=== PATIENT | female | born 1960 | race Caucasian/White ===

== ENCOUNTER 2018-07-24 01:06 | Observation (INO) | payer BC ==
[2018-07-24 02:23] LABS: Absolute Lymphocytes (CBC) 3.2 K/uL (0.7-4.9); Absolute Neutrophil 10.2 K/uL (1.8-8.0); Basophils % 0.9 % (0-1.3); Eosinophils % 1.2 % (0-4.4); Lymphocytes % 21.6 % (15.3-44.8); MPV 9.3 fL (7.6-11.3); Monocytes % 6.6 % (3.3-12.3); RBC Red Blood Cell Count 5.32 M/uL (3.86-4.86)
[2018-07-24 02:26] LABS: Protime INR 1.23
[2018-07-24] MEDS ORDERED: ONDANSETRON 4 MG/2 ML VIAL ONE (02:32)
[2018-07-24] MEDS ORDERED: NA CHLORIDE 0.9% 1,000 ML ONE (02:32)
[2018-07-24] MEDS ORDERED: LEVALBUTEROL 1.25 MG/3 ML NEB ONE ×2 (02:32→03:06)
[2018-07-24] MEDS ORDERED: NA CHLORIDE 0.9% 500 ML ONE (02:32)
[2018-07-24] MEDS ORDERED: FAMOTIDINE 20 MG/2 ML VIAL IV ONE (02:32)
[2018-07-24] MEDS ORDERED: IPRATROPIUM BROM 0.5MG/2.5ML ONE (02:32)
[2018-07-24 02:56] LABS: ALT/SGPT 67 U/L (12-78); AST/SGOT 77 U/L (15-37); Alkaline Phosphatase 86 U/L (45-117); BUN Blood Urea Nitrogen 23 mg/dL (7-18); Bicarbonate 29 mmol/L (21-32); Bilirubin Direct 0.3 mg/dL (0-0.2); Bilirubin Total 1.1 mg/dL (0.2-1.0); Glucose Level 272 mg/dL (74-106); Lipase 118 U/L (73-393); NT PRO-BNP 69 pg/mL (<125); Potassium 3.5 mmol/L (3.5-5.1); Protein, Total 8.7 g/dL (6.4-8.2); Sodium Level 136 mmol/L (136-145); Troponin (Emerg Dept Use Only) < 0.02 ng/mL (0.0-0.045)
[2018-07-24 02:58] LABS: Magnesium 0.9 mg/dL (1.8-2.4)
[2018-07-24] MEDS ORDERED: METHYLPREDNISOLONE 125 MG INJ ONE (03:05)
[2018-07-24] MEDS ORDERED: NA CHLORIDE 0.9% 250 ML ONE (03:06)
[2018-07-24] MEDS ORDERED: AZITHROMYCIN 500 MG INJ IVPB ONE (03:06)
[2018-07-24] MEDS ORDERED: CEFTRIAXONE/SWI 1gm 1 GM/10 ML SYR ONE (03:06)
[2018-07-24] MEDS ORDERED: ASPIRIN 81 MG CHEWABLE TABLET ONE (03:06)
--- NOTE | 2018-07-24 03:07 | ER ---
Nurse's Notes [facility] Name: Miladys Ng Age: 58 yrs Sex: Female : 1960 Arrival Date: 07/24/2018 Time: 01:07 Bed 13 Private MD: VILMA OLIVARES Diagnosis: Dyspnea;Pneumonia due to other specified bacteria;Type 2 diabetes mellitus;Hypomagnesemia;Elevated white blood cell count;Hypercalcemia;Chest pain, unspecified;Solitary pulmonary nodule Presentation: 07/24 01:21 Presenting complaint: Patient states: that since last night she has been having fc coughing, sinus issues, scratchy throat and has vomited. Transition of care: patient was not received from another setting of care. Onset of symptoms was July 23, 2018. Risk Assessment: Do you want to hurt yourself or someone else? Patient reports no desire to harm self or others. Initial Sepsis Screen: Does the patient meet any 2 criteria? HR > 90 bpm. Yes Does the patient have a suspected source of infection? No. Patient's initial sepsis screen is negative. Care prior to arrival: None. 01:21 Method Of Arrival: Ambulatory 01:21 Acuity: SULTANA 3 fc Historical: - Allergies: : No Known Allergies; fc - Home Meds: :31 spironolactone 50 mg Oral tab 3 tabs once daily [Active]; amiloride 5 mg oral tab 6 fc tabs once daily [Active]; potassium chloride 10 mEq Oral cpER 4 caps 2 times per day [Active]; magnesium oxide 400 mg Oral tab 2 tab twice a day [Active]; pantoprazole 40 mg oral TbEC 1 tab nightly [Active]; levothyroxine 88 mcg tab 1 tab once daily [Active]; Zantac 150 mg Oral tab 1 tab once daily [Active]; - PMHx: 01:31 low potassium; low magnesium; GERD; fc - PSHx: 01:31 D \T\ C; fc - Immunization history:: Last tetanus immunization: up to date. - Social history:: Smoking status: Patient/guardian denies using tobacco, Patient/guardian denies using alcohol, street drugs. - Ebola Screening: : Patient negative for fever greater than or equal to 101.5 degrees Fahrenheit, and additional compatible Ebola Virus Disease symptoms Patient denies exposure to infectious person Patient denies travel to an Ebola-affected area in the 21 days before illness onset. - Family history:: not pertinent. Screenin:24 Abuse screen: Denies threats or abuse. Nutritional screening: No deficits noted. fc Tuberculosis screening: No symptoms or risk factors identified. Fall Risk None identified. Assessment: 01:30 General: Appears in no apparent distress. uncomfortable, Behavior is calm, cooperative, jd3 appropriate for age. Pain: Denies pain. Neuro: Level of Consciousness is awake, alert, obeys commands, Oriented to person, place, time, situation, Appropriate for age. Cardiovascular: Heart tones present Capillary refill < 3 seconds Patient's skin is warm and dry. Respiratory: Reports cough that is non-productive, Airway is patent Respiratory effort is even, unlabored, Respiratory pattern is regular, symmetrical, Breath sounds are clear bilaterally. GI: Abdomen is round Bowel sounds present X 4 quads. Abd is soft and non tender X 4 quads. Reports nausea. : No signs and/or symptoms were reported regarding the genitourinary system. EENT: No signs and/or symptoms were reported regarding the EENT system. Derm: Skin is intact, Skin is dry, Skin is normal, Skin temperature is warm. Musculoskeletal: Circulation, motion, and sensation intact. Range of motion: intact in all extremities. 02:15 Reassessment: Patient appears in no apparent distress at this time. Patient and/or jd3 family updated on plan of care and expected duration. Pain level reassessed. Patient is alert, oriented x 3, equal unlabored respirations, skin warm/dry/pink. 03:15 Reassessment: Patient appears in no apparent distress at this time. Patient and/or jd3 family updated on plan of care and expected duration. Pain level reassessed. Patient is alert, oriented x 3, equal unlabored respirations, skin warm/dry/pink. 04:12 Reassessment: Patient appears in no apparent distress at this time. Patient and/or jd3 family updated on plan of care and expected duration. Pain level reassessed. Patient is alert, oriented x 3, equal unlabored respirations, skin warm/dry/pink. Vital Signs: 01:21 BP 125 / 86; Pulse 125; Resp 18; Temp 98.2(O); Pulse Ox 93% on R/A; Weight 64.86 kg fc (R); Height 5 ft. 0 in. (152.40 cm) (R); Pain 8/10; 04:12 BP 111 / 59; Pulse 125; Resp 19 S; Pulse Ox 95% on R/A; jd3 01:21 Body Mass Index 27.93 (64.86 kg, 152.40 cm) ED Course: 01:07 Patient arrived in ED. am2 01:07 VILMA OLIVARES is Private Physician. am2 01:21 Arm band placed on Patient placed in an exam room, on a stretcher. fc 01:23 Triage completed. fc 01:23 Sanjiv Fairbanks RN is Primary Nurse. jd3 01:24 Patient has correct armband on for positive identification. Bed in low position. Call light in reach. 01:24 No provider procedures requiring assistance completed. fc 01:27 Valeriano Cisneros MD is Attending Physician. meghan 02:04 Inserted saline lock: 22 gauge in right antecubital area, using aseptic technique. mw2 Blood collected. 02:23 Patient moved to radiology via wheelchair. kw 02:24 X-ray completed. Patient tolerated procedure well. kw 02:24 Patient moved back from radiology. kw 02:25 Abdomen Acute Series XRAY In Process Unspecified. EDMS 02:56 Radiology exam delayed due to lab results not completed at this time. (BUN/Creatinine) kw1 test not completed at this time. 02:57 Notified ED physician of a critical lab result(s). mag of 0.9. fc 03:02 Gilbert Oliva MD is Hospitalizing Provider. meghan 03:30 CT Chest For PE Angio In Process Unspecified. EDMS Administered Medications: 03:45 Drug: NS 0.9% 1000 ml Route: IV; Rate: 125 ml/hr; Site: right antecubital; jd3 03:45 Drug: NS 0.9% 500 ml Route: IV; Rate: bolus; Site: right antecubital; jd3 03:45 Drug: Zofran 4 mg Route: IVP; Site: right antecubital; jd3 03:46 Drug: Pepcid 20 mg Route: IVP; Site: right antecubital; jd3 03:46 Drug: Xopenex 2.5 mg Route: Inhalation; jd3 03:46 Drug: AtroVENT Aerosol 0.5 mg Route: Inhalation; jd3 03:46 Drug: Rocephin 1 grams Route: IV; Rate: per protocol; Site: right antecubital; jd3 03:47 Drug: Zithromax 500 mg Route: IVPB; Infused Over: 1 hrs; Site: right antecubital; jd3 03:47 Drug: SOLU-Medrol 125 mg Route: IVP; Site: right antecubital; jd3 03:47 Drug: Xopenex 1.25 mg Route: Inhalation; jd3 03:47 Drug: Aspirin 162 mg Route: PO; jd3 03:48 Drug: Magnesium Sulfate 2 grams Route: IVPB; Infused Over: 2 hrs; Site: right jd3 antecubital; 03:48 Drug: Lovenox 60 mg Route: Sub-Q; Site: abdomen; jd3 Outcome: 03:07 Decision to Hospitalize by Provider. meghan 04:53 Patient left the ED. jd3 Signatures: Dispatcher [employer] EDValeriano Haider MD MD cha Chretien, Felicia RN Adriana Guerrero Amanda am2 Davies, Jonathon, RN RN jd3 Wilhelm, Kimberly kw1 Thor España mw2 Corrections: (The following items were deleted from the chart) 04:13 04:12 BP 111 / 59; Pulse 125bpm; Resp 17bpm; Spontaneous; Pulse Ox 95% RA; jd3 jd3
--- NOTE | 2018-07-24 03:08 | EDPHYS ---
Physician Documentation [facility] Name: Miladys Ng Age: 58 yrs Sex: Female : 1960 Arrival Date: 07/24/2018 Time: 01:07 Bed 13 Private MD: VILMA OLIVARES ED Physician Valeriano Cisneros HPI: 07/24 01:50 This 58 yrs old Female presents to ER via Ambulatory with complaints of Cough.meghan 01:50 The patient or guardian reports cough, difficulty breathing. meghan 01:51 The patient or guardian reports chest pain that is located primarily in the substernal meghan area, anterior chest wall. Onset: 6 month(s) ago. The patient presents to the emergency department with nausea, vomiting, that is continuous. Onset: The symptoms/episode began/occurred 1 day(s) ago. Possible causes: unknown. The symptoms are aggravated by nothing. The symptoms are alleviated by nothing. The pain does not radiate. Severity of symptoms: At their worst the symptoms were mild, moderate, in the emergency department the symptoms are unchanged. Historical: - Allergies: :31 No Known Allergies; fc - Home Meds: :31 spironolactone 50 mg Oral tab 3 tabs once daily [Active]; amiloride 5 mg oral tab 6 fc tabs once daily [Active]; potassium chloride 10 mEq Oral cpER 4 caps 2 times per day [Active]; magnesium oxide 400 mg Oral tab 2 tab twice a day [Active]; pantoprazole 40 mg oral TbEC 1 tab nightly [Active]; levothyroxine 88 mcg tab 1 tab once daily [Active]; Zantac 150 mg Oral tab 1 tab once daily [Active]; - PMHx: :31 low potassium; low magnesium; GERD; fc - PSHx: 01:31 D \T\ C; fc - Immunization history:: Last tetanus immunization: up to date. - Social history:: Smoking status: Patient/guardian denies using tobacco, Patient/guardian denies using alcohol, street drugs. - Ebola Screening: : Patient negative for fever greater than or equal to 101.5 degrees Fahrenheit, and additional compatible Ebola Virus Disease symptoms Patient denies exposure to infectious person Patient denies travel to an Ebola-affected area in the 21 days before illness onset. - Family history:: not pertinent. ROS: 01:51 Constitutional: Negative for fever, chills, and weight loss, Eyes: Negative for injury, meghan pain, redness, and discharge, ENT: Negative for injury, pain, and discharge, Neck: Negative for injury, pain, and swelling, Respiratory: Negative for shortness of breath, cough, wheezing, and pleuritic chest pain, Back: Negative for injury and pain, : Negative for injury, bleeding, discharge, and swelling, MS/Extremity: Negative for injury and deformity, Skin: Negative for injury, rash, and discoloration, Neuro: Negative for headache, weakness, numbness, tingling, and seizure, Psych: Negative for depression, anxiety, suicide ideation, homicidal ideation, and hallucinations, Allergy/Immunology: Negative for hives, rash, and allergies, Endocrine: Negative for neck swelling, polydipsia, polyuria, polyphagia, and marked weight changes, Hematologic/Lymphatic: Negative for swollen nodes, abnormal bleeding, and unusual bruising. 01:51 Cardiovascular: Positive for chest pain. 01:51 Respiratory: Positive for cough, with no reported sputum. 01:51 Abdomen/GI: Positive for abdominal pain, nausea and vomiting. Exam: 01:51 Constitutional: This is a well developed, well nourished patient who is awake, alert, meghan and in no acute distress. Head/Face: Normocephalic, atraumatic. Eyes: Pupils equal round and reactive to light, extra-ocular motions intact. Lids and lashes normal. Conjunctiva and sclera are non-icteric and not injected. Cornea within normal limits. Periorbital areas with no swelling, redness, or edema. ENT: Nares patent. No nasal discharge, no septal abnormalities noted. Tympanic membranes are normal and external auditory canals are clear. Oropharynx with no redness, swelling, or masses, exudates, or evidence of obstruction, uvula midline. Mucous membranes moist. Neck: Trachea midline, no thyromegaly or masses palpated, and no cervical lymphadenopathy. Supple, full range of motion without nuchal rigidity, or vertebral point tenderness. No Meningismus. Chest/axilla: Normal chest wall appearance and motion. Nontender with no deformity. No lesions are appreciated. Respiratory: Lungs have equal breath sounds bilaterally, clear to auscultation and percussion. No rales, rhonchi or wheezes noted. No increased work of breathing, no retractions or nasal flaring. Abdomen/GI: Soft, non-tender, with normal bowel sounds. No distension or tympany. No guarding or rebound. No evidence of tenderness throughout. Back: No spinal tenderness. No costovertebral tenderness. Full range of motion. Skin: Warm, dry with normal turgor. Normal color with no rashes, no lesions, and no evidence of cellulitis. MS/ Extremity: Pulses equal, no cyanosis. Neurovascular intact. Full, normal range of motion. Neuro: Awake and alert, GCS 15, oriented to person, place, time, and situation. Cranial nerves II-XII grossly intact. Motor strength 5/5 in all extremities. Sensory grossly intact. Cerebellar exam normal. Normal gait. Psych: Awake, alert, with orientation to person, place and time. Behavior, mood, and affect are within normal limits. 01:51 Cardiovascular: Rate: tachycardic, Rhythm: regular, Pulses: Pulses are 4+ in bilateral radial, brachial, femoral, popliteal, posterior tibial and and dorsalis pedis arteries.. Heart sounds: normal, Edema: is not appreciated, JVD: is not appreciated. 02:31 Musculoskeletal/extremity: DVT Exam: No signs of deep vein thrombosis. no pain, no meghan swelling, no tenderness, negative Homans' sign noted on exam, no appreciated bluish discoloration, no erythema, no increased warmth. Vital Signs: 01:21 BP 125 / 86; Pulse 125; Resp 18; Temp 98.2(O); Pulse Ox 93% on R/A; Weight 64.86 kg fc (R); Height 5 ft. 0 in. (152.40 cm) (R); Pain 8/10; 04:12 BP 111 / 59; Pulse 125; Resp 19 S; Pulse Ox 95% on R/A; jd3 01:21 Body Mass Index 27.93 (64.86 kg, 152.40 cm) MDM: 01:27 Patient medically screened. [facility] 01:51 Data reviewed: vital signs, nurses notes, lab test result(s), EKG, radiologic studies, [facility] plain films. 07/24 01:49 Order name: Basic Metabolic Panel [facility] 07/24 01:49 Order name: CBC with Diff; Complete Time: 02:28 [facility] 07/24 01:49 Order name: LFT's [facility] 07/24 01:49 Order name: Magnesium [facility] 07/24 01:49 Order name: NT PRO-BNP [facility] 07/24 01:49 Order name: PT-INR; Complete Time: 02:28 [facility] 07/24 01:49 Order name: Troponin (emerg Dept Use Only) meghan 07/24 01:49 Order name: TSH [facility] 07/24 01:49 Order name: Lipase [facility] 07/24 01:49 Order name: Urine Culture [facility] 07/24 02:18 Order name: D-Dimer; Complete Time: 02:28 EDTX 07/24 02:31 Order name: Blood Culture Adult (2) [facility] 07/24 02:31 Order name: Blood Culture EDTX 07/24 02:57 Order name: Urine Dipstick--Ancillary (enter results) ar 07/24 02:59 Order name: Phosphorus EDTX 07/24 03:25 Order name: CBC with Automated Diff EDMS 07/24 03:25 Order name: CBC with Automated Diff EDMS 07/24 03:25 Order name: Comprehensive Metabolic Panel EDTX 07/24 03:25 Order name: Comprehensive Metabolic Panel EDMS 07/24 03:25 Order name: Lactate EDMS 07/24 03:25 Order name: Lactate EDMS 07/24 03:25 Order name: Lipid Profile EDMS 07/24 03:25 Order name: Lipid Profile EDMS 07/24 03:25 Order name: Magnesium EDMS 07/24 03:25 Order name: Magnesium EDMS 07/24 03:25 Order name: Phosphorus EDMS 07/24 03:25 Order name: Phosphorus EDMS 07/24 03:25 Order name: NT PRO-BNP [facility] 07/24 01:49 Order name: EKG; Complete Time: 01:50 07/24 01:49 Order name: Cardiac monitoring; Complete Time: 02:49 07/24 01:49 Order name: EKG - Nurse/Tech; Complete Time: 02:50 07/24 01:49 Order name: IV Saline Lock; Complete Time: 02:22 meghan 07/24 01:49 Order name: Labs collected and sent; Complete Time: 02:22 07/24 01:49 Order name: O2 Per Protocol; Complete Time: 02:23 meghan 07/24 01:49 Order name: O2 Sat Monitoring; Complete Time: 02:23 [facility] 07/24 01:49 Order name: Abdomen Acute Series XRAY [facility] 07/24 01:49 Order name: Urine Dipstick-Ancillary (obtain specimen); Complete Time: 04:12 [facility] 07/24 02:27 Order name: CT Chest For PE Angio [facility] 07/24 03:25 Order name: NPO EDTX 07/24 03:25 Order name: NT PRO-BNP [facility] 07/24 03:27 Order name: Calcium Level EDTX 07/24 03:27 Order name: Ionized Calcium [facility] 07/24 03:27 Order name: CBC with Automated Diff EDTX 07/24 03:27 Order name: Creatine Phosphokinase [facility] 07/24 03:27 Order name: Magnesium [facility]TX 07/24 03:27 Order name: Procalcitonin [facility] 07/24 03:27 Order name: Phosphorus EDMS Administered Medications: 03:45 Drug: NS 0.9% 1000 ml Route: IV; Rate: 125 ml/hr; Site: right antecubital; jd3 03:45 Drug: NS 0.9% 500 ml Route: IV; Rate: bolus; Site: right antecubital; jd3 03:45 Drug: Zofran 4 mg Route: IVP; Site: right antecubital; jd3 03:46 Drug: Pepcid 20 mg Route: IVP; Site: right antecubital; jd3 03:46 Drug: Xopenex 2.5 mg Route: Inhalation; jd3 03:46 Drug: AtroVENT Aerosol 0.5 mg Route: Inhalation; jd3 03:46 Drug: Rocephin 1 grams Route: IV; Rate: per protocol; Site: right antecubital; jd3 03:47 Drug: Zithromax 500 mg Route: IVPB; Infused Over: 1 hrs; Site: right antecubital; jd3 03:47 Drug: SOLU-Medrol 125 mg Route: IVP; Site: right antecubital; jd3 03:47 Drug: Xopenex 1.25 mg Route: Inhalation; jd3 03:47 Drug: Aspirin 162 mg Route: PO; jd3 03:48 Drug: Magnesium Sulfate 2 grams Route: IVPB; Infused Over: 2 hrs; Site: right jd3 antecubital; 03:48 Drug: Lovenox 60 mg Route: Sub-Q; Site: abdomen; jd3 Disposition: 07/24/18 03:07 Hospitalization ordered by Gilbert Oliva for Inpatient Admission. Preliminary diagnosis are Dyspnea, Pneumonia due to other specified bacteria, Type 2 diabetes mellitus, Hypomagnesemia, Elevated white blood cell count, Hypercalcemia, Chest pain, unspecified, Solitary pulmonary nodule. - Bed requested for Telemetry/MedSurg (Inpatient). - Status is Inpatient Admission. jd3 - Condition is Fair. - Problem is new. - Symptoms have improved. UTI on Admission? No Signatures: Dispatcher [employer] EDTX Karmen Del Cid RN RN mw Anderson, Corey, MD MD cha Chretien, Felicia, RN RN Sanjiv Fairbanks RN RN jd3 Corrections: (The following items were deleted from the chart) 02:17 01:54 D-DIMER+COAG.LAB.BRZ ordered. EDTX EDMS 02:58 02:34 PHOSPHORUS+C.LAB.BRZ ordered. EDTX EDTX 03:12 03:07 Hospitalization Ordered by Gilbert Oliva MD for Inpatient Admission. Preliminary diagnosis is Dyspnea; Pneumonia due to other specified bacteria; Type 2 diabetes mellitus; Hypomagnesemia; Elevated white blood cell count; Hypercalcemia; Chest pain, unspecified. Bed requested for Telemetry/MedSurg (Inpatient). Status is Inpatient Admission. Condition is Fair. Problem is new. Symptoms have improved. UTI on Admission? No. meghan 03:14 03:12 07/24/2018 03:07 Hospitalization Ordered by Gilbert Oliva MD for Inpatient Admission. Preliminary diagnosis is Dyspnea; Pneumonia due to other specified bacteria; Type 2 diabetes mellitus; Hypomagnesemia; Elevated white blood cell count; Hypercalcemia; Chest pain, unspecified. Bed requested for Telemetry/MedSurg (Inpatient). Status is Inpatient Admission. Condition is Fair. Problem is new. Symptoms have improved. UTI on Admission? No. 04:08 03:14 07/24/2018 03:07 Hospitalization Ordered by Gilbert Oliva MD for Inpatient [facility] Admission. Preliminary diagnosis is Dyspnea; Pneumonia due to other specified bacteria; Type 2 diabetes mellitus; Hypomagnesemia; Elevated white blood cell count; Hypercalcemia; Chest pain, unspecified. Bed requested for Telemetry/MedSurg (Inpatient). Status is Inpatient Admission. Condition is Fair. Problem is new. Symptoms have improved. UTI on Admission? No. mw 04:53 04:08 07/24/2018 03:07 Hospitalization Ordered by Gilbert Oliva MD for Inpatient jd3 Admission. Preliminary diagnosis is Dyspnea; Pneumonia due to other specified bacteria; Type 2 diabetes mellitus; Hypomagnesemia; Elevated white blood cell count; Hypercalcemia; Chest pain, unspecified; Solitary pulmonary nodule. Bed requested for Telemetry/MedSurg (Inpatient). Status is Inpatient Admission. Condition is Fair. Problem is new. Symptoms have improved. UTI on Admission? No. meghan
[2018-07-24 03:17] LABS: Phosphorus 3.1 mg/dL (2.5-4.9)
[2018-07-24] MEDS ORDERED: IPRATROPIUM BROM 0.5MG/2.5ML NEB PRN (03:21)
[2018-07-24] MEDS ORDERED: ALBUTEROL 2.5 MG/3 ML NEB SOL NEB PRN (03:21)
[2018-07-24] MEDS ORDERED: ONDANSETRON 4 MG/2 ML VIAL IV PRN (03:21)
[2018-07-24] MEDS ORDERED: ACETAMINOPHEN 500 MG TAB PO PRN (03:21)
[2018-07-24] MEDS ORDERED: ENOXAPARIN 60 MG/0.6 ML SQ ONE (03:26)
[2018-07-24] MEDS ORDERED: Magnesium Sulfate 2gm IVPB 2 G/50 ML BAG IV ONE (03:26)
[2018-07-24] MEDS ORDERED: NA CHLORIDE 0.9% 1,000 ML IV SCH (04:00)
[2018-07-24 05:01] VITALS: O2SAT 95
[2018-07-24 05:10] VITALS: BMI 28.6
[2018-07-24 05:33] LABS: Urine Blood TRACE (NEG); Urine Glucose NEGATIVE (NEG); Urine Protein 2+ (NEG); Urine Specific Gravity >1.030 (1.005-1.030)
[2018-07-24 05:44] LABS: Absolute Lymphocytes (CBC) 2.8 K/uL (0.7-4.9); Absolute Monocytes 0.5 K/uL (0.1-1.3); Basophils % 0.6 % (0-1.3); Eosinophils % 0.6 % (0-4.4); Hematocrit 41.1 % (36.0-45.0); Lymphocytes % 18.3 % (15.3-44.8); MPV 9.3 fL (7.6-11.3); RBC Red Blood Cell Count 4.64 M/uL (3.86-4.86)
[2018-07-24 06:02] LABS: Magnesium 1.8 mg/dL (1.8-2.4); Phosphorus 2.6 mg/dL (2.5-4.9)
--- NOTE | 2018-07-24 07:05 | EKG ---
Test Date: 2018-07-24 Test Time: 02:46:11 Basket Person: [place] MEASUREMENT RESULTS: Intervals: Rate: 118 OK: 140 QRSD: 82 QT: 328 QTc: 459 [place]: P: 62 OK: 140 QRS: 112 T: 31 INTERPRETIVE STATEMENTS: Sinus tachycardia vertical QRS axis Abnormal ECG Compared to ECG 03/28/2013 17:55:45 Right-axis deviation no longer present Electronically Signed On 07-24-18 07:04:25 CDT by Markus Madrigal
[2018-07-24] MEDS ORDERED: MAGNESIUM SULFATE 1 gm IVPB 1 GM/100 ML BAG IV ONE (08:00)
--- NOTE | 2018-07-24 08:19 | RAD REPORT ---
EXAM DESCRIPTION: RAD - Abdomen Acute Series - 07/24/2018 2:28 am CLINICAL HISTORY: ABD PAIN COMPARISON: CHEST PA AND LAT 2 VIEW dated 03/28/2013; CHEST PA AND LAT 2 VIEW dated 04/27/2010; CHEST P A AND LAT 2 VIEW dated 12/09/2009 FINDINGS: The lungs are grossly clear. No subdiaphragmatic free air is seen. The bowel gas pattern is nonobstructive. Bilateral renal calcifications seen. Mild levoscoliosis of the lumbar spine with bridging left-sided osteophyte. IMPRESSION: Bilateral nephrolithiasis.
--- NOTE | 2018-07-24 08:37 | P.HP ---
Certification for Inpatient Patient admitted to: Inpatient With expected LOS: >2 Midnights Patient will require the following post-hospital care: None Practitioner: I am a practitioner with admitting privileges, knowledge of patient current condition, hospital course, and medical plan of care. Services: Services provided to patient in accordance with Admission requirements found in Title 42 Section 412.3 of the Code of Federal Regulations Patient History Date of Service: 07/24/18 Reason for admission: Pneumonia & electrolyte abnormalities; nephrolithiasis History of Present Illness: Patient is a 58-year-old gentleman who came into the hospital with shortness of breath and pleuritic chest pain. Patient has been having coughing congestion for the last week. Her symptoms have not really been improving so she came into the hospital for further evaluation. In the emergency room, her workup revealed that she may have an infiltrate. She also was found have bilateral nephrolithiasis. Patient also had multiple electrolyte abnormalities including hypomagnesemia and hypercalcemia. Patient was admitted to the hospital for further evaluation. Allergies No Known Allergies Allergy (Verified 07/24/18 05:12) Home Medications: Amiloride HCl 6 tab PO DAILY 07/24/18 Levothyroxine [Synthroid*] 1 tab PO DAILY 07/24/18 Magnesium Oxide [Mag 0X*] 2 tab PO BID 07/24/18 Pantoprazole [Protonix Tab*] 1 tab PO BEDTIME 07/24/18 Potassium Chloride 4 tab PO BID 07/24/18 Ranitidine [Zantac*] 1 tab PO DAILY 07/24/18 Spironolactone [Aldactone] 3 tab PO DAILY 07/24/18 - Past Medical/Surgical History Has patient received pneumonia vaccine in the past: No Diabetic: No -: low potassium -: leg cramps -: low magnesium -: chronic pain legs thigs -: GERD Past Surgical History: Patient denies surgical history - Family History Mother Medical History: Diabetes Brother Medical History: Diabetes - Social History Smoking Status: Never smoker Alcohol use: No CD- Drugs: No Caffeine use: Yes Place of Residence: Home Review of Systems 10-point ROS is otherwise unremarkable Physical Examination - Vital Signs Temperature: 97.0 F Blood Pressure: 93/53 Pulse: 91 Respirations: 18 Pulse Ox (%): 96 - Physical Exam General: Alert, In no apparent distress, Oriented x3 HEENT: Atraumatic, PERRLA, Mucous membr. moist/pink, EOMI, Sclerae nonicteric Neck: Supple, 2+ carotid pulse no bruit, No LAD, Without JVD or thyroid abnormality Respiratory: Diminished, Expiratory wheezes, Rhonchi/gurgles Cardiovascular: Regular rate/rhythm, Normal S1 S2, Systolic murmur Gastrointestinal: Normal bowel sounds, Soft and benign, Non-distended, Tenderness Musculoskeletal: No clubbing, No swelling, No tenderness Integumentary: No rashes Neurological: Normal gait, Normal speech, Normal strength at 5/5 x4 extr, Normal tone, Normal affect Lymphatics: No axilla or inguinal lymphadenopathy - Studies Laboratory Data (last 24 hrs) 07/24/18 02:34: Phosphorus Cancelled 07/24/18 02:05: PT 14.4 H, INR 1.23 07/24/18 02:05: WBC 14.6 H, Hgb 16.4 H, Hct 47.0 H, Plt Count 352 07/24/18 02:05: Sodium 136, Potassium 3.5, BUN 23 H, Creatinine 1.10, Glucose 272 H, Phosphorus 3.1, Magnesium 0.9 L*, Total Bilirubin 1.1 H, AST 77 H, ALT 67 , Alkaline Phosphatase 86, Lipase 118 Assessment & Plan - Problems (Diagnosis) (1) Bilateral nephrolithiasis Current Visit: Yes Status: Acute (2) Pneumonia Current Visit: Yes Status: Acute (3) URI (upper respiratory infection) Current Visit: Yes Status: Acute (4) Hypomagnesemia Current Visit: Yes Status: Acute (5) Hypercalcemia Current Visit: Yes Status: Acute - Plan 1. Continue with IV antibiotics 2. Awaiting sputum and blood culture 3. Repeat chest x-ray 4. Will proceed with CT scan of the chest 5. CBC, CMP in am 6. Continue with nebs as needed 7. O2 per protocol 8. Continue with gentle hydration 9. GI and DVT prophylaxis Discharge Plan: Home Plan to discharge in: 48 Hours - Advance Directives Does patient have a Living Will: No Does patient have a Durable POA for Healthcare: No - Code Status/Comfort Care Code Status Assessed: Yes Code Status: Full Code Critical Care: No Time Spent Managing PTS Care (In Minutes): 45
[2018-07-24] MEDS ORDERED: CEFTRIAXONE 1 GM/NS 50 ML 1 GM/50 ML BAG IV SCH (09:00)
[2018-07-24] MEDS ORDERED: ENOXAPARIN 40 MG/0.4 ML SQ SCH (09:00)
[2018-07-24] MEDS ORDERED: KCL 20 MEQ/100 mL IVPB 20 MEQ/100 ML BAG IV SCH (09:00)
[2018-07-24] MEDS ORDERED: POTASSIUM CL SA 10 MEQ TAB PO ONE (10:07)
--- NOTE | 2018-07-24 10:12 | RAD REPORT ---
EXAM DESCRIPTION: CT CHEST ANGIOGRAPHY WITH IV CONTRAST CLINICAL HISTORY: CHEST PAIN COMPARISON: None Available TECHNIQUE: Multiple helical axial tomographic images were obtained of the chest following administra tion of intravenous contrast (95 mL Isovue-370) per angiographic protocol. Coronal, sagittal, and obl ique reformatted images were obtained. This exam was performed according to our departmental dose-optimization program, which includes autom ated exposure control, adjustment of the mA and/or kV according to patient size and/or use of iterati ve reconstruction technique. FINDINGS: Thyroid gland: unremarkable. Axilla: unremarkable. Pulmonary arteries: Pulmonary arteries appear patent. No evidence of pulmonary embolism. Aorta: No evidence of aortic dissection or aneurysm. Mediastinum: A small hiatal hernia is present. Few nonspecific mildly prominent lymph nodes near the hiatal hernia demonstrated. Otherwise, no significant adenopathy. Heart: Heart is normal in size. Lungs/airways: No consolidation. Airways are patent. There is a 3 mm subpleural nodule in the right l ower lobe (series 401, image 60). Pleural spaces: No significant pleural effusion. No pneumothorax. Osseous: Unremarkable. Soft tissues: Nonspecific coarse calcification in the left breast soft tissues noted. Several small c alcifications in the right breast noted. Visualized abdomen: There is a 6 mm calcification in the upper pole of the left kidney. There is low- attenuation in the liver suggestive of fatty changes. IMPRESSION: 1. No acute intrathoracic abnormality. 2. Right lower lobe 3 mm nodule. For a high-risk patient, optional follow-up chest CT in one year is recommended per Fleischner Society criteria. For a low risk patient, no further follow-up is needed. 3. Few small calcifications in the right breast are nonspecific. Consider correlation with routine sc reening mammography. Electronically signed by: Jayce Chaves MD 07/24/2018 3:56 AM CDT Due to temporary technical issues with the PACS/Fluency reporting system, reports are being signed by the in house radiologist as a courtesy to ensure prompt reporting. The interpreting radiologist is f ully responsible for the content of the report.
[2018-07-24 12:45] VITALS: TEMP 98
[2018-07-24 16:22] VITALS: BP 110/60
[2018-07-24] MEDS ORDERED: CEFTRIAXONE/SWI 1gm 1 GM/10 ML SYR IV SCH (17:00)
--- NOTE | 2018-07-24 17:26 | P.SSS ---
Patient History Date of Service: 07/24/18 Reason for admission: Pneumonia & electrolyte abnormalities; nephrolithiasis History of Present Illness: Patient is a 58-year-old female who came into the hospital with shortness of breath and pleuritic chest pain. Patient has been having coughing congestion for the last week. Her symptoms have not really been improving so she came into the hospital for further evaluation. In the emergency room, her workup revealed that she may have an infiltrate. She also was found have bilateral nephrolithiasis. Patient also had multiple electrolyte abnormalities including hypomagnesemia and hypercalcemia. Patient was admitted to the hospital for further evaluation. Allergies No Known Allergies Allergy (Verified 07/24/18 05:12) Home medications list reviewed: Yes Home Medications: Amiloride HCl 6 tab PO DAILY 07/24/18 Levothyroxine [Synthroid*] 1 tab PO DAILY 07/24/18 Magnesium Oxide [Mag 0X*] 2 tab PO BID 07/24/18 Pantoprazole [Protonix Tab*] 1 tab PO BEDTIME 07/24/18 Potassium Chloride 4 tab PO BID 07/24/18 Ranitidine [Zantac*] 1 tab PO DAILY 07/24/18 Spironolactone [Aldactone] 3 tab PO DAILY 07/24/18 - Past Medical/Surgical History Has patient received pneumonia vaccine in the past: No Diabetic: No -: low potassium -: leg cramps -: low magnesium -: chronic pain legs thigs -: GERD - Family History Mother -: Diabetes Brother -: Diabetes - Social History Smoking Status: Never smoker Alcohol use: No CD- Drugs: No Caffeine use: Yes Place of Residence: Home Review of Systems 10-point ROS is otherwise unremarkable Physical Examination - Vital Signs Temperature: 98.0 F Blood Pressure: 110/60 Pulse: 94 Respirations: 18 Pulse Ox (%): 97 - Physical Exam General: Alert, In no apparent distress, Oriented x3 HEENT: Atraumatic, PERRLA, Mucous membr. moist/pink, EOMI, Sclerae nonicteric Neck: Supple, 2+ carotid pulse no bruit, No LAD, Without JVD or thyroid abnormality Respiratory: Clear to auscultation bilaterally, Normal air movement Cardiovascular: Regular rate/rhythm, Normal S1 S2 Gastrointestinal: Normal bowel sounds, No tenderness Musculoskeletal: No tenderness Integumentary: No rashes Neurological: Normal gait, Normal speech, Normal strength at 5/5 x4 extr, Normal tone, Normal affect Lymphatics: No axilla or inguinal lymphadenopathy - Studies Laboratory Data (last 24 hrs) 07/24/18 02:34: Phosphorus Cancelled 07/24/18 02:05: PT 14.4 H, INR 1.23 07/24/18 02:05: WBC 14.6 H, Hgb 16.4 H, Hct 47.0 H, Plt Count 352 07/24/18 02:05: Sodium 136, Potassium 3.5, BUN 23 H, Creatinine 1.10, Glucose 272 H, Phosphorus 3.1, Magnesium 0.9 L*, Total Bilirubin 1.1 H, AST 77 H, ALT 67 , Alkaline Phosphatase 86, Lipase 118 Imagings Data: CT CHEST ANGIOGRAPHY WITH IV CONTRAST TECHNIQUE: Multiple helical axial tomographic images were obtained of the chest following administration of intravenous contrast (95 mL Isovue-370) per angiographic protocol. Coronal, sagittal, and oblique reformatted images were obtained. This exam was performed according to our departmental dose-optimization program , which includes automated exposure control, adjustment of the mA and/or kV according to patient size and/or use of iterative reconstruction technique. FINDINGS: Thyroid gland: unremarkable. Axilla: unremarkable. Pulmonary arteries: Pulmonary arteries appear patent. No evidence of pulmonary embolism. Aorta: No evidence of aortic dissection or aneurysm. Mediastinum: A small hiatal hernia is present. Few nonspecific mildly prominent lymph nodes near the hiatal hernia demonstrated. Otherwise, no significant adenopathy. Heart: Heart is normal in size. Lungs/airways: No consolidation. Airways are patent. There is a 3 mm subpleural nodule in the right lower lobe (series 401, image 60). Pleural spaces: No significant pleural effusion. No pneumothorax. Osseous: Unremarkable. Soft tissues: Nonspecific coarse calcification in the left breast soft tissues noted. Several small calcifications in the right breast noted. Visualized abdomen: There is a 6 mm calcification in the upper pole of the left kidney. There is low-attenuation in the liver suggestive of fatty changes. IMPRESSION: 1. No acute intrathoracic abnormality. 2. Right lower lobe 3 mm nodule. For a high-risk patient, optional follow-up chest CT in one year is recommended per Fleischner Society criteria. For a low risk patient, no further follow-up is needed. 3. Few small calcifications in the right breast are nonspecific. Consider correlation with routine screening mammography. CHEST PA AND LAT 2 VIEW FINDINGS: The lungs are grossly clear. No subdiaphragmatic free air is seen. The bowel gas pattern is nonobstructive. Bilateral renal calcifications seen. Mild levoscoliosis of the lumbar spine with bridging left-sided osteophyte. IMPRESSION: Bilateral nephrolithiasis. - Diagnosis (Problem(s)) (1) Bilateral nephrolithiasis Current Visit: Yes Status: Acute (2) Pneumonia Current Visit: Yes Status: Acute Qualifiers: Pneumonia type: due to unspecified organism Laterality: right Lung location: lower lobe of lung Qualified Code(s): J18.1 - Lobar pneumonia, unspecified organism (3) URI (upper respiratory infection) Current Visit: Yes Status: Acute Qualifiers: URI type: unspecified URI Qualified Code(s): J06.9 - Acute upper respiratory infection, unspecified (4) Hypomagnesemia Current Visit: Yes Status: Resolved (5) Hypercalcemia Current Visit: Yes Status: Resolved Treatment Summary: Patient was admitted for suspected pneumonia, bilateral nephrolithiasis and multiple underlying abnormalities. She was given IV antibiotics along with IV fluids. Her electrolytes were repleted, improved on recheck. CT scan of the chest with a 3 mm nodule in right lower lung. Patient is not a smoker, no family history of lung cancer. Patient is recommended to have followup imaging in a year. Her CBC did show leukocytosis, this is likely secondary to IV steroid. Prior to discharge, she was alert oriented x3, in no acute distress, off oxygen , satting well on room air. She is tolerating an oral diet. She was doing great and wanted to go home. She stated that she had an appointment with her primary care physician this week already scheduled. Her diagnoses/treatment plan were discussed with patient, all questions were answered. She verbalized understanding along with her at bedside. She was discharged home in a safe and stable manner. She was discharged with a prescription for azithromycin 250 mg for 7 days. - Disposition Discharge Date: 07/14/18 Disposition: ROUTINE DISCHARGE Condition: GOOD Patient Discharge Instructions: Please follow up with the primary care physician in 2-3 days. We are recommending a repeat CT scan in 1 year to evaluate the small in nodule noticed on the CT scan. New prescription: Azithromycin, an antibiotic for your upper respiratory infection/pneumonia. Please return to the emergency room for worsening symptoms. Diet: [facility] Time Spent Managing Pts Care (In Minutes): 55
[2018-07-24] MEDS ORDERED: AZITHROMYCIN IV 500 MG in NA CHLORIDE 0.9% 250 ML IVPB SCH (21:00)
[2018-07-25] MEDS ORDERED: ENOXAPARIN 40 MG/0.4 ML SQ SCH (09:00)
== END 2018-07-24 18:19 | disposition home or self-care (01) ==
LOC: ER 01:06 → INTOOBSV 03:21 → ERHOLD 03:21 → 4TH 04:50
PROVIDERS: ADMIT Hospitalist; ATTEND Family Medicine
DX: J15.8 Pneumonia due to other specified bacteria (principal); N20.0 Calculus of kidney; J06.9 Acute upper respiratory infection, unspecified; E83.42 Hypomagnesemia; E83.52 Hypercalcemia; R91.1 Solitary pulmonary nodule; E11.9 Type 2 diabetes mellitus without complications; D72.829 Elevated white blood cell count, unspecified; R06.00 Dyspnea, unspecified; G89.29 Other chronic pain; K21.9 Gastro-esophageal reflux disease without esophagitis; R25.2 Cramp and spasm; Z83.3 Family history of diabetes mellitus
CPT/HCPCS: 36415; 71275; 74022; 80048; 80076; 81003; 82310; 82330; 82550; 83690; 83735; 83880; 84100; 84145; 84443; 84484; 85025; 85379; 85610; 87040; 87086; 87088; 93005; 94760; G0378; J0456; J0696; J1650; J2405; J2930; J3475; J7030; Q9967

== ENCOUNTER 2018-10-06 21:23 | Emergency (ER) | payer BC ==
[2018-10-06 22:22] LABS: Basophils % 0.9 % (0-1.3); Hematocrit 43.8 % (36.0-45.0); Lymphocytes % 21.7 % (15.3-44.8); MPV 9.4 fL (7.6-11.3); Monocytes % 9.2 % (3.3-12.3); RBC Red Blood Cell Count 4.96 M/uL (3.86-4.86)
[2018-10-06 22:25] LABS: Protime INR 1.14
[2018-10-06] MEDS ORDERED: ACETAMINOPHEN 325 MG TABLET ONE (22:27)
[2018-10-06] MEDS ORDERED: NA CHLORIDE 0.9% 1,000 ML ONE (22:27)
[2018-10-06 22:41] LABS: BUN Blood Urea Nitrogen 15 mg/dL (7-18); Bicarbonate 33 mmol/L (21-32); Glucose Level 241 mg/dL (74-106); Lipase 132 U/L (73-393); Sodium Level 135 mmol/L (136-145); Troponin (Emerg Dept Use Only) < 0.02 ng/mL (0.0-0.045)
[2018-10-06 22:43] LABS: Potassium 2.2 mmol/L (3.5-5.1)
[2018-10-06] MEDS ORDERED: POTASSIUM 25 MEQ EFFERV TAB ONE (23:27)
[2018-10-06] MEDS ORDERED: Magnesium Sulfate 2gm IVPB 2 G/50 ML BAG IV ONE (23:27)
[2018-10-06 23:37] LABS: Urine Blood NEGATIVE (NEG); Urine Glucose 2+ (NEG); Urine Protein 2+ (NEG); Urine Specific Gravity 1.025 (1.005-1.030)
[2018-10-06 23:59] LABS: Urine Bacteria 20-50 /HPF (<20); Urine Culture Reflex Order REFLEXED; Urine RBC NONE SEEN /HPF (NONE SEEN)
--- NOTE | 2018-10-07 00:48 | EDPHYS ---
Physician Documentation [facility] Name: Miladys Ng Age: 58 yrs Sex: Female : 1960 Arrival Date: 10/06/2018 Time: 21:26 Bed 5 Private MD: VILMA OLIVARES ED Physician Arnold Louis HPI: 10/07 00:59 This 58 yrs old Female presents to ER via Ambulatory with complaints of gs Vomiting Fever. 00:59 Onset: The symptoms/episode began/occurred 2 day(s) ago. Modifying factors: there are gs no obvious modifying factors. Associated signs and symptoms: Pertinent positives: arthralgias, chills, cough, myalgias. Associated signs and symptoms: Pertinent positives: vomiting. Severity of symptoms: At their worst the symptoms were. Severity of symptoms: At their worst the symptoms were severe in the emergency department the symptoms have improved moderately. The patient has experienced similar episodes in the past, a few times. The patient has not recently seen a physician. Historical: - Allergies: 10/06 21:35 No Known Allergies; la1 - PMHx: 21:35 GERD; LOW MAGNESIUM; LOW POTASSIUM; Gitelman's syndrome; la1 - Immunization history:: Adult Immunizations up to date. - Social history:: Smoking status: Patient/guardian denies using tobacco. - Ebola Screening: : No symptoms or risks identified at this time. ROS: 10/07 01:06 All other systems are negative. gs Exam: 01:06 Head/Face: Normocephalic, atraumatic. Eyes: Pupils equal round and reactive to light, gs extra-ocular motions intact. Lids and lashes normal. Conjunctiva and sclera are non-icteric and not injected. Cornea within normal limits. Periorbital areas with no swelling, redness, or edema. ENT: Nares patent. No nasal discharge, no septal abnormalities noted. Tympanic membranes are normal and external auditory canals are clear. Oropharynx with no redness, swelling, or masses, exudates, or evidence of obstruction, uvula midline. Mucous membranes moist. Neck: Trachea midline, no thyromegaly or masses palpated, and no cervical lymphadenopathy. Supple, full range of motion without nuchal rigidity, or vertebral point tenderness. No Meningismus. Chest/axilla: Normal chest wall appearance and motion. Nontender with no deformity. No lesions are appreciated. Respiratory: Lungs have equal breath sounds bilaterally, clear to auscultation and percussion. No rales, rhonchi or wheezes noted. No increased work of breathing, no retractions or nasal flaring. Abdomen/GI: Soft, non-tender, with normal bowel sounds. No distension or tympany. No guarding or rebound. No evidence of tenderness throughout. Back: No spinal tenderness. No costovertebral tenderness. Full range of motion. Skin: Warm, dry with normal turgor. Normal color with no rashes, no lesions, and no evidence of cellulitis. MS/ Extremity: Pulses equal, no cyanosis. Neurovascular intact. Full, normal range of motion. Neuro: Awake and alert, GCS 15, oriented to person, place, time, and situation. Cranial nerves II-XII grossly intact. Motor strength 5/5 in all extremities. Sensory grossly intact. Cerebellar exam normal. Normal gait. 01:06 Constitutional: The patient appears alert, awake. 01:06 Cardiovascular: Rate: tachycardic, Rhythm: regular, Pulses: no pulse deficits are appreciated, Heart sounds: normal. 01:06 ECG was reviewed by the Attending Physician. Vital Signs: 10/06 21:35 BP 131 / 75; Pulse 114; Resp 16; Temp 98.8; Pulse Ox 98% on R/A; Weight 65.77 kg; la1 Height 5 ft. 0 in. (152.40 cm); 21:45 Temp 99.1(O); tl1 22:49 BP 109 / 62; Pulse 94; Resp 18; Pulse Ox 97% on R/A; tl1 10/07 00:00 BP 102 / 70; Pulse 85; Resp 17; Pulse Ox 98% ; rr5 01:10 BP 96 / 76; Pulse 88; Resp 19; Temp 99; Pulse Ox 99% ; rr5 10/06 21:35 Body Mass Index 28.32 (65.77 kg, 152.40 cm) la1 MDM: 10/06 21:58 Patient medically screened. gs 10/07 01:06 Differential diagnosis: viral Infection, bacterial infection, pneumonia UTI. Data gs reviewed: vital signs, nurses notes, old medical records, lab test result(s), radiologic studies. Counseling: I had a detailed discussion with the patient and/or guardian regarding: the historical points, exam findings, and any diagnostic results supporting the discharge/admit diagnosis, lab results, radiology results, the need for further work-up and treatment in the hospital. Refusal of service: The patient/guardian displays adequate decision making capability and despite a detailed discussion of alternatives, benefits, risks, and consequences refuses: Admission to the hospital for further work-up and treatment. 10/06 21:59 Order name: Basic Metabolic Panel; Complete Time: 22:45 10/06 21:59 Order name: Blood Culture Adult (2) 10/06 21:59 Order name: CBC with Diff; Complete Time: 22:45 10/06 21:59 Order name: Procalcitonin; Complete Time: 23:00 10/06 21:59 Order name: Protime (+inr); Complete Time: 22:45 10/06 21:59 Order name: Troponin (emerg Dept Use Only); Complete Time: 22:45 10/06 21:59 Order name: Urine Microscopic Only; Complete Time: 00:01 10/06 21:59 Order name: XRAY Chest Pa And Lat (2 Views) 10/06 21:59 Order name: Lipase; Complete Time: 22:45 10/06 21:59 Order name: Flu; Complete Time: 22:45 10/06 22:45 Order name: Magnesium; Complete Time: 23:00 10/06 23:26 Order name: Urine Dipstick--Ancillary (enter results); Complete Time: 00:01 [facility] 10/07 00:01 Order name: Urine Culture [facility] 10/06 21:59 Order name: Accucheck; Complete Time: 22:09 10/06 21:59 Order name: Cardiac monitoring; Complete Time: 22:09 10/06 21:59 Order name: EKG - Nurse/Tech; Complete Time: 22:09 10/06 21:59 Order name: IV Saline Lock - Large Bore; Complete Time: 22:09 10/06 21:59 Order name: Labs collected and sent; Complete Time: 22:09 10/06 21:59 Order name: O2 Per Protocol; Complete Time: 22:09 10/06 21:59 Order name: O2 Sat Monitoring; Complete Time: 22: 10/06 21:59 Order name: Urine Dipstick-Ancillary (obtain specimen); Complete Time: 23:27 gs EC:06 Rate is 107 beats/min. Rhythm is regular. NC interval is normal. QRS interval is gs normal. T waves are Normal. No ST changes noted. Clinical impression: Abnormal EKG without significant change. Interpreted by me. Administered Medications: 10/06 22:13 Drug: NS 0.9% 1000 ml Route: IV; Rate: 1 bolus; Site: right antecubital; tl1 23:20 Follow up: Response: No adverse reaction; IV Status: Completed infusion; IV Intake: rr5 1000ml 22:14 Drug: Tylenol 650 mg Route: PO; tl1 23:15 Follow up: Response: No adverse reaction rr5 23:20 Drug: Magnesium Sulfate 2 grams Route: IVPB; Infused Over: 2 hrs; Site: right lp1 antecubital; 10/07 01:10 Follow up: Response: No adverse reaction; IV Status: Completed infusion; IV Intake: rr5 100ml 10/06 23:20 Drug: Potassium Effervescent Tablet 50 mEq Route: PO; lp1 10/07 00:20 Follow up: Response: No adverse reaction rr5 Point of Care Testing: Blood Glucose: 10/06 22:08 Blood Glucose: 244 mg/dL; tl1 Ranges: Critical Glucose Levels:Adult <50 mg/dl or >400 mg/dl <40 mg/dl or >180 mg/dl Disposition: 10/07/18 00:47 Discharged to Home. Impression: Fever, unspecified, Acute bronchitis, Hypomagnesemia, Hypokalemia. - Condition is Stable. - Discharge Instructions: Acute Bronchitis, Adult, Hypomagnesemia, Hypokalemia. - Medication Reconciliation Form, Thank You Letter, Antibiotic Education, Prescription Opioid Use form. - Follow up: Private Physician; When: 2 - 3 days; Reason: Re-evaluation by your physician. Signatures: Dispatcher [employer] JEANNIENM Meghan Reis, RN RN lp1 Cliff Mims RN RN la1 Aria Camejo RN RN tl1 Arnold Louis MD MD gs Roque, Raymond RN RN rr5 Corrections: (The following items were deleted from the chart) 22:04 21:31 Chest Pa And Lat (2 Views)+[email or web address] ordered. [facility] EDNM 10/07 01:11 00:47 10/07/2018 00:47 Discharged to Home. Impression: Fever, unspecified; Acute rr5 bronchitis; Hypomagnesemia; Hypokalemia. Condition is Stable. Forms are Medication Reconciliation Form, Thank You Letter, Antibiotic Education, Prescription Opioid Use. Follow up: Private Physician; When: 2 - 3 days; Reason: Re-evaluation by your physician. gs
--- NOTE | 2018-10-07 00:48 | ER ---
Nurse's Notes [facility] Name: Miladys Ng Age: 58 yrs Sex: Female : 1960 Arrival Date: 10/06/2018 Time: 21:26 Bed 5 Private MD: VILMA OLIVARES Diagnosis: Fever, unspecified;Acute bronchitis;Hypomagnesemia;Hypokalemia Presentation: 10/06 21:33 Presenting complaint: Patient states: I have been feeling fatigue all week and then la1 this evening I started vomiting. I have had a cough for a week as well and this is how I feel when I get PNA. Transition of care: patient was not received from another setting of care. Onset of symptoms was October 06, 2018. Risk Assessment: Do you want to hurt yourself or someone else? Patient reports no desire to harm self or others. Initial Sepsis Screen: Does the patient meet any 2 criteria? No. Patient's initial sepsis screen is negative. Does the patient have a suspected source of infection? No. Patient's initial sepsis screen is negative. Care prior to arrival: None. 21:33 Method Of Arrival: Ambulatory la1 21:33 Acuity: SULTANA 3 la1 Historical: - Allergies: 21:35 No Known Allergies; la1 - PMHx: 21:35 GERD; LOW MAGNESIUM; LOW POTASSIUM; Gitelman's syndrome; la1 - Immunization history:: Adult Immunizations up to date. - Social history:: Smoking status: Patient/guardian denies using tobacco. - Ebola Screening: : No symptoms or risks identified at this time. Screenin:55 Abuse screen: Denies threats or abuse. Denies injuries from another. Nutritional tl1 screening: No deficits noted. Tuberculosis screening: No symptoms or risk factors identified. Fall Risk IV access (20 points). Assessment: 21:56 General: Appears in no apparent distress. comfortable, Behavior is calm, cooperative, tl1 appropriate for age. Pain: Complains of pain in left upper quadrant, right lower quadrant and left lower quadrant Pain currently is 6 out of 10 on a pain scale. Quality of pain is described as aching, crampy, Pain began 4 hours ago. Neuro: Level of Consciousness is awake, alert, obeys commands, Oriented to person, place, time, situation. Cardiovascular: Denies chest pain. Respiratory: Airway is patent Trachea midline Respiratory effort is even, unlabored, Breath sounds are clear bilaterally. GI: Abdomen is non-distended, Bowel sounds present X 4 quads. Abdomen is tender to palpation X 4 quads. Reports lower abdominal pain, upper abdominal pain, nausea, vomiting. : No signs and/or symptoms were reported regarding the genitourinary system. EENT: No signs and/or symptoms were reported regarding the EENT system. 23:10 Reassessment: Patient appears in no apparent distress at this time. Patient is alert, rr5 oriented x 3, equal unlabored respirations, skin warm/dry/pink. chatting with her sports specialist without complaints made, breathing spontaneously at room air. 10/07 00:15 Reassessment: Patient appears in no apparent distress at this time. Patient is alert, rr5 oriented x 3, equal unlabored respirations, skin warm/dry/pink. no complaints made. ongoing magnesium infusion. 01:10 Reassessment: Patient appears in no apparent distress at this time. Patient is alert, rr5 oriented x 3, equal unlabored respirations, skin warm/dry/pink. discharge instruction given and explained without complaints made. Patient denies pain at this time. Patient states feeling better. Patient states symptoms have improved. Vital Signs: 10/06 21:35 BP 131 / 75; Pulse 114; Resp 16; Temp 98.8; Pulse Ox 98% on R/A; Weight 65.77 kg; la1 Height 5 ft. 0 in. (152.40 cm); 21:45 Temp 99.1(O); tl1 22:49 BP 109 / 62; Pulse 94; Resp 18; Pulse Ox 97% on R/A; tl1 10/07 00:00 BP 102 / 70; Pulse 85; Resp 17; Pulse Ox 98% ; rr5 01:10 BP 96 / 76; Pulse 88; Resp 19; Temp 99; Pulse Ox 99% ; rr5 10/06 21:35 Body Mass Index 28.32 (65.77 kg, 152.40 cm) la1 ED Course: 10/06 21:26 Patient arrived in ED. do 21:27 VILMA OLIVARES is Private Physician. do 21:34 Triage completed. la1 21:35 Arm band placed on left wrist. la1 21:35 Patient has correct armband on for positive identification. Placed in gown. Bed in low tl1 position. Call light in reach. Side rails up X 1. Adult w/ patient. 21:36 Arnold Louis MD is Attending Physician. gs 21:55 No provider procedures requiring assistance completed. Inserted saline lock: 20 gauge tl1 in right antecubital area, using aseptic technique. Blood collected. 22:08 Aria Camejo, RN is Primary Nurse. tl1 22:14 XRAY Chest Pa And Lat (2 Views) In Process Unspecified. EDMS 22:48 Notified ED physician of a critical lab result(s). K 2.2. tl1 23:05 Notified ED physician of a critical lab result(s). Magnesium 1.1. lp1 10/07 01:10 IV discontinued, intact, bleeding controlled, No redness/swelling at site. Pressure rr5 dressing applied. Administered Medications: 10/06 22:13 Drug: NS 0.9% 1000 ml Route: IV; Rate: 1 bolus; Site: right antecubital; tl1 23:20 Follow up: Response: No adverse reaction; IV Status: Completed infusion; IV Intake: rr5 1000ml 22:14 Drug: Tylenol 650 mg Route: PO; tl1 23:15 Follow up: Response: No adverse reaction rr5 23:20 Drug: Magnesium Sulfate 2 grams Route: IVPB; Infused Over: 2 hrs; Site: right lp1 antecubital; 10/07 01:10 Follow up: Response: No adverse reaction; IV Status: Completed infusion; IV Intake: rr5 100ml 10/06 23:20 Drug: Potassium Effervescent Tablet 50 mEq Route: PO; lp1 10/07 00:20 Follow up: Response: No adverse reaction rr5 Point of Care Testing: Blood Glucose: 10/06 22:08 Blood Glucose: 244 mg/dL; tl1 Ranges: Intake: 23:20 IV: 1000ml; Total: 1000ml. rr5 10/07 01:10 IV: 100ml; Total: 1100ml. rr5 Outcome: 00:47 Discharge ordered by . gs 01:10 Discharged to home ambulatory, with family. rr5 01:10 Condition: stable 01:10 Discharge instructions given to patient, Instructed on discharge instructions, follow up and referral plans. Demonstrated understanding of instructions, follow-up care. 01:11 Patient left the ED. rr5 Signatures: Dispatcher [employer] Meghan Elam, RN RN lp1 Cliff Mims RN RN la1 Aria Camejo RN RN tl1 Sydnee Vazquez Gregory, MD MD gs Roque, Raymond RN RN rr5
[2018-10-07 01:19] VITALS: TEMP 99.1
[2018-10-07 01:21] VITALS: BP 109/62; O2SAT 97
--- NOTE | 2018-10-07 12:23 | RAD REPORT ---
EXAM DESCRIPTION: RAD - Chest Pa And Lat (2 Views) - 10/06/2018 10:14 pm CLINICAL HISTORY: COUGH Chest pain. COMPARISON: <Comparisons> FINDINGS: The lungs are clear. The heart is normal in size. No displaced fractures. IMPRESSION: No acute or concerning finding suspected.
--- NOTE | 2018-10-07 22:16 | EKG ---
Test Date: 2018-10-06 Test Time: 21:50:17 Head Of Strategy: LASHAWN MEASUREMENT RESULTS: Intervals: Rate: 107 AK: 158 QRSD: 88 QT: 356 QTc: 475 Golva: P: 55 AK: 158 QRS: 117 T: 27 INTERPRETIVE STATEMENTS: Sinus tachycardia with occasional premature ventricular complexes Rightward QRS axis Cannot rule out Inferior infarct, age undetermined Abnormal ECG Compared to ECG 07/24/2018 02:46:11 Ventricular premature complex(es) now present Myocardial infarct finding now present Electronically Signed On 10-07-18 22:16:00 CDT by Markus Madrigal
== END 2018-10-07 01:11 | disposition home or self-care (01) ==
LOC: ER 21:23
DX: J20.9 Acute bronchitis, unspecified (principal); E83.42 Hypomagnesemia; E87.6 Hypokalemia
CPT/HCPCS: 36415; 71046; 80048; 81003; 81015; 82962; 83690; 83735; 84145; 84484; 85025; 85610; 87040; 87086; 87088; 87804; 93005; 96361; 96365; 96366; 99284; J3475; J7030

== ENCOUNTER 2021-11-17 18:43 | Observation (INO) | payer BC ==
--- OUTSIDE RECORDS SUMMARY | 2021-11-17 18:46 | XMS REPORT | Continuity of Care Document ---
:1960 Author Organization [facility] t Address [address] [place] [address] Care Team Providers Name Role Phone ÓSCAR RUIZ Primary Care Physician Unavailable Elizabeth Bowens Attending Clinician ELIZABETH GIL Attending Clinician Unavailable KATY ACEVEDO Attending Clinician Unavailable Payers Payer Name Policy Type Policy Number Effective Date Expiration Date S ource Problems Condition Condition Condition Status Onset Resolution Last Treating Co mments Source Name Details Category Date Date Treatment Clinician Date No known No known Disease Unive rs active active ity of problems problems [facility] Allergies, Adverse Reactions, Alerts Allergy Allergy Status Severity Reaction(s) Onset Inactive Treating Comm ents Source Name Type Date Date Clinician NO KNOWN Drug Active Univers ALLERGIE Class ity of S [facility] Social History Social Habit Start Date Stop Date Quantity Comments Source Exposure to Not sure [facility] SARS-CoV-2 [facility] (event) Branch Tobacco use and 2021-04-02 2021-04-02 Never used Universit y of exposure 00:00:00 00:00:00 [facility] Alcohol intake 2021-04-02 2021-04-02 Current University of 00:00:00 00:00:00 non-drinker of [facility] alcohol Branch (finding) Sex Ass[birth year] At [birth year] Universit y of 00:00:00 00:00:00 [facility] Smoking Status Start Date Stop Date Source Unknown if ever smoked Universit y of [facility] Medications Ordered Filled Start Stop Current Ordering Indication Dosage Frequency Signature Comments Components Source Medication Medication Date Date Medication? Clinician (SIG) Name Name oseltamivir 2021- No [id number] 75mg Take 1 Univers (TAMIFLU) 04-03 capsule by ity of 75 mg 00:00: 05:59 mouth 2 [place] capsule 00 :00 (two) Medical times Branch daily with meals for 5 days. codeine-gua 2021- No [id number] 5mL Take 5 mL Univers ifenesin 04-02 by mouth ity of 10-100 mg/5 00:00: 05:59 every 6 [place] mL oral 00 :00 (six) Medical solution hours as Branch needed for Cough for up to 7 days. Indication s: acute pain spironolact Yes 150mg Take 150 U nivers one 8-19 mg by ity of (ALDACTONE) 13:21: mouth [place] 50 mg 35 daily. Medical tablet Branch magnesium Yes 800mg Take 800 Uni vers oxide 8-19 mg by ity of (MAG-OX 13:21: mouth 3 [place] 400) 400 mg 35 (three) Medic al tablet times Branch daily. aMILoride Yes 5mg Take 5 mg Uni vers (MIDAMOR) 5 8-19 by mouth ity of mg tablet 13:21: daily. [place] 35 Medical Branch METHYLPREDN Yes Inject as U nivers ISOLONE 8 directed ity of ACETATE 13:21: every 3 [place] (DEPO-MEDRO 35 (three) Medic al L months. Branch INJECTION) doxepin Yes 10mg Take 10 mg Univ ers (SINEQUAN) 8-19 by mouth ity o f 10 mg 13:21: at bedtime [place] capsule 35 as needed. Medica l Branch butalbital- Yes Take by Uni vers acetaminoph 8-19 mouth ity of en-caffeine 13:21: every 4 [place] as (FIORICET 35 (four) Medical WITH hours as Branch CODEINE) needed. 30-50-325-4 1-2 tabs 0 mg per capsule NORETH A-ET Yes 1mg Take 1 mg U nivers ESTRA/FE 8-19 by mouth ity of FUMARATE 13:21: daily. [place] (LOESTRIN 35 ONLY TAKE Medic al 24 FE ORAL) [facility] PILLS potassium Yes 20meq Take 20 Univ ers chloride 8-19 mEq by ity of (KLOR-CON) 13:21: mouth 2 [place] 20 mEq 35 (two) Medical packet times Branch daily. diphenoxyla Yes Take by Uni vers te-atropine 8-19 mouth ity of (LOMOTIL) 13:21: every 6 [place] 2.5-0.025 35 (six) Medical mg tablet hours as Branch needed. 1-2 tablets Immunizations Ordered Filled Immunization Date Status Comments Markie e Immunization Name Name SARS-COV-2 COVID-19 2020-07-03 Completed Unive rsity of PFIZER VACCINE 00:00:00 [facility] SARS-COV-2 COVID-19 2020-06-11 Completed Unive rsity of PFIZER VACCINE 00:00:00 [facility] Vital Signs Vital Name Observation Time Observation Value Comments Source Systolic blood 2021-04-03 02:14:00 124 [facility]Hg[facility] pressure [facility] Diastolic blood 2021-04-03 02:14:00 82 mm[facility]Hg[facility] Heart rate 2021-04-03 02:14:00 107 /min [facility] Body height 2021-04-03 02:14:00 152.4 cm [facility] Body weight 2021-04-03 02:14:00 63.458 kg [facility] BMI 2021-04-03 02:14:00 27.32 kg/m2 [facility] Oxygen saturation 2021-04-03 02:14:00 94 /min [facility] Medical Br anch by Pulse oximetry Procedures Procedure Date / Time Performed Performing Clinician Alvin mancilla GALV ONLY - INFLUENZA 2021-04-03 02:17:00 [facility] A B RSV PCR [facility] Branch COVID-19 (MOLECULAR 2021-04-03 02:17:00 Elizabeth Gil [facility] TESTING [facility] NUCLEIC ACID AMPLIFICATION) Encounters Start End Encounter Admission Attending Care Care Encounter Source Date/Time Date/Time Type Type Clinicians Facility Department ID 2021-04-02 2021-04-02 Urgent Jeffery [facility] [id number] Univers 20:00:00 20:59:55 [facility] [id number] it y [place] [id number] [place] VIRGIL?BLEA [id number] Ca dical [address] MEDICAL OFFICE BUILDING 2021-04-02 2021-04-02 Outpatient R JEFFERY [facility] [id number] Univers 20:00:00 20:59:55 [facility] 2020-06-11 2020-06-11 [facility] [id number] Univers 13:30:00 12:40:05 KATY [facility] Results This patient has no known results.
[2021-11-17] MEDS ORDERED: NA CHLORIDE 0.9% 1,000 ML ONE (19:46)
[2021-11-17] MEDS ORDERED: ONDANSETRON 4 MG/2 ML VIAL ONE (19:46)
[2021-11-17] MEDS ORDERED: GLUCAGON 1 MG/VIAL ONE ×2 (19:46→20:58)
[2021-11-17] MEDS ORDERED: FAMOTIDINE 20 MG/2 ML VIAL IV ONE (19:46)
[2021-11-17 20:05] LABS: Absolute Lymphocytes (CBC) 2.4 K/uL (0.7-4.9); Hematocrit 39.3 % (36.0-45.0); Lymphocytes % 29.4 % (15.3-44.8); MCV 87.6 fL (80-100); MPV 8.4 fL (7.6-11.3); RBC Red Blood Cell Count 4.48 M/uL (3.86-4.86)
[2021-11-17 20:29] LABS: Albumin 3.3 g/dL (3.4-5.0); Bilirubin Total 0.4 mg/dL (0.2-1.0); Protein, Total 7.3 g/dL (6.4-8.2)
[2021-11-17 20:34] LABS: Potassium 2.9 mmol/L (3.5-5.1)
[2021-11-17] MEDS ORDERED: POTASSIUM 25 MEQ EFFERV TAB ONE (20:58)
[2021-11-17] MEDS ORDERED: KCL 20 MEQ/100 mL IVPB 100 ML IV ONE (20:58)
--- NOTE | 2021-11-17 21:02 | RAD REPORT ---
EXAM DESCRIPTION: RAD - Chest Single View - 11/17/2021 8:50 pm CLINICAL HISTORY: COUGH Chest pain. COMPARISON: No comparisonsChest Pa And Lat (2 Views) dated 10/06/2018; Abdomen Acute Series dated 06/27; CHEST PA AND LAT 2 VIEW dated 03/28/2013; CHEST PA AND LAT 2 VIEW dated 04/27/2010 FINDINGS: Portable technique limits examination quality. The lungs are grossly clear. The heart is normal in size. No displaced fractures. IMPRESSION: No acute intrathoracic process suspected.
--- NOTE | 2021-11-17 21:06 | EDPHYS ---
Physician Documentation [facility] Name: Miladys Ng Age: 61 yrs Sex: Female : 1960 Arrival Date: 11/17/2021 Time: 18:44 Bed 28 Private MD: ED Physician Valeriano Cisneros HPI: 11/17 20:51 This 61 yrs old Female presents to ER via Ambulatory with complaints of food meghan bolus. 20:52 The patient presents to the emergency department with nausea, that is mild. Onset: The meghan symptoms/episode began/occurred just prior to arrival. Possible causes: food bolus. The symptoms are aggravated by food , The symptoms are alleviated by nothing. eating steak. Associated signs and symptoms: Pertinent positives: nausea. Severity of symptoms: At their worst the symptoms were mild in the emergency department the symptoms are unchanged. The patient has experienced similar episodes in the past, a few times. Historical: - Allergies: 19:01 No Known Allergies; hb - Home Meds: 18:51 spironolactone 50 mg Oral tab 3 tabs once daily [Active]; jh5 - PMHx: 18:51 GERD; Gitelman's syndrome; LOW MAGNESIUM; LOW POTASSIUM; jh5 - Immunization history:: Adult Immunizations up to date. - Social history:: Smoking status: Patient denies any tobacco usage or history of. - Family history:: not pertinent. ROS: 20:52 Constitutional: Negative for fever, chills, and weight loss, Eyes: Negative for injury, meghan pain, redness, and discharge, ENT: Negative for injury, pain, and discharge, Neck: Negative for injury, pain, and swelling, Cardiovascular: Negative for chest pain, palpitations, and edema, Respiratory: Negative for shortness of breath, cough, wheezing, and pleuritic chest pain, Back: Negative for injury and pain, : Negative for injury, bleeding, discharge, and swelling, MS/Extremity: Negative for injury and deformity, Skin: Negative for injury, rash, and discoloration, Neuro: Negative for headache, weakness, numbness, tingling, and seizure, Psych: Negative for depression, anxiety, suicide ideation, homicidal ideation, and hallucinations, Allergy/Immunology: Negative for hives, rash, and allergies, Endocrine: Negative for neck swelling, polydipsia, polyuria, polyphagia, and marked weight changes, Hematologic/Lymphatic: Negative for swollen nodes, abnormal bleeding, and unusual bruising. 20:52 Abdomen/GI: Positive for nausea and vomiting. Exam: 20:52 Constitutional: This is a well developed, well nourished patient who is awake, alert, meghan and in no acute distress. Head/Face: Normocephalic, atraumatic. Eyes: Pupils equal round and reactive to light, extra-ocular motions intact. Lids and lashes normal. Conjunctiva and sclera are non-icteric and not injected. Cornea within normal limits. Periorbital areas with no swelling, redness, or edema. ENT: Nares patent. No nasal discharge, no septal abnormalities noted. Tympanic membranes are normal and external auditory canals are clear. Oropharynx with no redness, swelling, or masses, exudates, or evidence of obstruction, uvula midline. Mucous membranes moist. Neck: Trachea midline, no thyromegaly or masses palpated, and no cervical lymphadenopathy. Supple, full range of motion without nuchal rigidity, or vertebral point tenderness. No Meningismus. Chest/axilla: Normal chest wall appearance and motion. Nontender with no deformity. No lesions are appreciated. Cardiovascular: Regular rate and rhythm with a normal S1 and S2. No gallops, murmurs, or rubs. Normal PMI, no JVD. No pulse deficits. Respiratory: Lungs have equal breath sounds bilaterally, clear to auscultation and percussion. No rales, rhonchi or wheezes noted. No increased work of breathing, no retractions or nasal flaring. Abdomen/GI: Soft, non-tender, with normal bowel sounds. No distension or tympany. No guarding or rebound. No evidence of tenderness throughout. Back: No spinal tenderness. No costovertebral tenderness. Full range of motion. Skin: Warm, dry with normal turgor. Normal color with no rashes, no lesions, and no evidence of cellulitis. MS/ Extremity: Pulses equal, no cyanosis. Neurovascular intact. Full, normal range of motion. Neuro: Awake and alert, GCS 15, oriented to person, place, time, and situation. Cranial nerves II-XII grossly intact. Motor strength 5/5 in all extremities. Sensory grossly intact. Cerebellar exam normal. Normal gait. Psych: Awake, alert, with orientation to person, place and time. Behavior, mood, and affect are within normal limits. 21:09 ECG was reviewed by the Attending Physician. meghan 21:10 Musculoskeletal/extremity: DVT Exam: No signs of deep vein thrombosis. no pain, no meghan swelling, no tenderness, negative Homans' sign noted on exam, no appreciated bluish discoloration, no erythema, no increased warmth. Vital Signs: 18:49 BP 142 / 91; Pulse 81; Resp 20; Temp 98.7; Pulse Ox 99% ; Weight 58.97 kg; Height 5 ft. 5 0 in. (152.40 cm); 21:00 BP 138 / 88; Pulse 80; Resp 17; Pulse Ox 100% on R/A; Pain 2/10; hb 22:30 BP 118 / 63; Pulse 71; Resp 17; Pulse Ox 98% on R/A; ll3 23:30 BP 110 / 68; Pulse 72; Resp 18; Pulse Ox 98% on R/A; ll3 18:49 Body Mass Index 25.39 (58.97 kg, 152.40 cm) 5 MDM: 19:16 Patient medically screened. meghan 20:54 Differential diagnosis: viral gastroenteritis, gastroenteritis. Data reviewed: [facility] signs, nurses notes, lab test result(s), radiologic studies, CT scan, plain films. Data interpreted: vehicle monitor technician: rate is 81 beats/min, rhythm is regular, Pulse oximetry: on room air is 99 %. Test interpretation: by ED physician or midlevel provider: ECG, plain radiologic studies. Counseling: I had a detailed discussion with the patient and/or guardian regarding: the historical points, exam findings, and any diagnostic results supporting the discharge/admit diagnosis, lab results, radiology results, the need for outpatient follow up, for definitive care, a family practitioner, a freelance graphic designer. 11/17 19:31 Order name: CBC with Diff; Complete Time: 20:52 [facility] 11/17 19:31 Order name: Comprehensive Metabolic Panel; Complete Time: 20:52 [facility] 11/17 20:08 Order name: Troponin High Sensitivity; Complete Time: 21:49 [facility] 11/17 20:59 Order name: Magnesium; Complete Time: 21:49 [facility] 11/17 23:38 Order name: SARS RAPID sb3 11/18 00:18 Order name: SARS-COV-2 Antigen Rapid [facility] 11/18 02:57 Order name: CBC with Automated Diff [facility] 11/18 03:21 Order name: Hemoglobin A1c [facility] 11/18 03:27 Order name: Basic Metabolic Panel [facility] 11/18 03:27 Order name: Phosphorus [facility] 11/18 03:27 Order name: Lipid Profile [facility] 11/18 03:27 Order name: Magnesium [facility] 11/18 03:27 Order name: Thyroid Stimulating Hormone [facility] 11/17 19:31 Order name: Chest Single View XRAY; Complete Time: 21:06 [facility] 11/17 19:31 Order name: EKG; Complete Time: 19:32 [facility] 11/17 19:31 Order name: EKG - Nurse/Tech; Complete Time: 20:00 [facility] 11/17 20:08 Order name: CT Chest For PE Angio; Complete Time: 21:49 [facility] 11/17 20:39 Order name: PO challenge: juice; Complete Time: 20:57 [facility] 11/18 08:26 Order name: Glucose, Ancillary Testing [facility] EC:09 Rate is 73 beats/min. Rhythm is regular. QRS [place] is Normal. AL interval is normal. QRS meghan interval is normal. QT interval is normal. No Q waves. T waves are Normal. No ST changes noted. Clinical impression: Normal ECG and No evidence of ischemia. Interpreted by me. Reviewed by me. Administered Medications: 20:00 Drug: NS 0.9% 500 ml Route: IV; Rate: bolus; Site: right antecubital; hb 20:59 Follow up: Response: No adverse reaction; IV Status: Completed infusion; IV Intake: hb 500ml 20:00 Drug: Zofran (Ondansetron) 4 mg Route: IVP; Site: right antecubital; hb 21:02 Follow up: Response: No adverse reaction hb 20:00 Drug: Pepcid (famotidine) 20 mg Route: IVP; Site: right antecubital; hb 20:59 Follow up: Response: No adverse reaction hb 20:01 Drug: Glucagon 1 mg Route: IVP; Site: right antecubital; hb 20:58 Follow up: Response: No adverse reaction hb 20:20 Drug: NS 0.9% 1000 ml Route: IV; Rate: 125 ml/hr; Site: right antecubital; hb 20:58 Drug: Glucagon 1 mg Route: IVP; Site: right antecubital; hb 22:14 Drug: Potassium Effervescent Tablet 25 mEq Route: PO; ll3 22:58 Follow up: Response: No adverse reaction ll3 22:19 Drug: Magnesium Sulfate 1 grams Route: IVPB; Infused Over: 30 mins; Site: right ll3 antecubital; 23:09 Follow up: Response: No adverse reaction; IV Status: Completed infusion; IV Intake: ll3 100ml 22:58 Not Given (Patient Refused): Potassium Chloride 20 mEq IV at per protocol once; ll3 administer over 1-2 hours Disposition Summary: 11/17/21 21:05 Hospitalization Ordered Hospitalization Status: Observation meghan Provider: Gilbert Oliva cha Condition: Stable meghan Problem: new meghan Symptoms: have improved meghan Bed/Room Type: Standard meghan Location: [facility] ER HOLD(11/17/21 23:34) Room Assignment: ERHOLD-(11/17/21 23:34) cg Diagnosis - Type 2 diabetes mellitus with hyperglycemia meghan - Other specified diabetes mellitus with hyperglycemia meghan - Hypomagnesemia meghan - Hypokalemia meghan - Esophageal obstruction - food bolus resolved meghan Forms: - Medication Reconciliation Form meghan - SBAR form meghan Signatures: Dispatcher [employer] EDMS Valeriano Cisneros MD MD cha Garcia, Cindy RN RN Ayla Coles RN RN Cherie Flor RN RN 5 Erick Randolph RN RN ll3 Tiny Dupree PA PA sb3 Corrections: (The following items were deleted from the chart) 20:59 20:53 MAGNESIUM+C.LAB.BRZ ordered. EDNY EDNY 23:34 21:05 Telemetry/MedSurg (observation) [facility] 23:34 21:05 meghan
--- NOTE | 2021-11-17 21:06 | ER ---
Nurse's Notes [facility] Name: Miladys Ng Age: 61 yrs Sex: Female : 1960 Arrival Date: 11/17/2021 Time: 18:44 Bed 28 Private MD: Diagnosis: Type 2 diabetes mellitus with hyperglycemia;Other specified diabetes mellitus with hyperglycemia;Hypomagnesemia;Hypokalemia;Esophageal obstruction-food bolus resolved Presentation: 11/17 18:49 Chief complaint: Patient states: Food bolus of steak; pt can speak, walk, and is in [facility] NAD. Coronavirus screen: Vaccine status: Patient reports receiving the 2nd dose of the covid vaccine. Client denies travel out of the [place] in the last 14 days. Ebola Screen: Patient negative for fever greater than or equal to 101.5 degrees Fahrenheit, and additional compatible Ebola Virus Disease symptoms Patient denies exposure to infectious person. Patient denies travel to an Ebola-affected area in the 21 days before illness onset. Initial Sepsis Screen: Does the patient meet any 2 criteria? No. Patient's initial sepsis screen is negative. Does the patient have a suspected source of infection? No. Patient's initial sepsis screen is negative. Risk Assessment: Do you want to hurt yourself or someone else? Patient reports no desire to harm self or others. Onset of symptoms was November 17, 2021. 18:49 Method Of Arrival: Ambulatory [facility] 18:49 Acuity: SULTANA 3 [facility] Triage Assessment: 18:51 General: Appears uncomfortable, slender, Behavior is calm, cooperative, appropriate for [facility] age. Pain: Denies pain. Historical: - Allergies: 19:01 No Known Allergies; hb - Home Meds: 18:51 spironolactone 50 mg Oral tab 3 tabs once daily [Active]; [facility] - PMHx: 18:51 GERD; Gitelman's syndrome; LOW MAGNESIUM; LOW POTASSIUM; [facility] - Immunization history:: Adult Immunizations up to date. - Social history:: Smoking status: Patient denies any tobacco usage or history of. - Family history:: not pertinent. Screenin:01 Abuse screen: Denies threats or abuse. Denies injuries from another. Nutritional hb screening: No deficits noted. Tuberculosis screening: No symptoms or risk factors identified. Fall Risk None identified. Assessment: 19:02 General: Appears in no apparent distress. Behavior is calm, cooperative. Neuro: Level hb of Consciousness is awake, alert, obeys commands. Cardiovascular: Patient's skin is warm and dry. Respiratory: Respiratory effort is even, unlabored, Respiratory pattern is regular, symmetrical. 20:32 Reassessment: potassium 2.9, md notified. bb 22:30 Reassessment: No changes from previously documented assessment. Patient and/or family ll3 updated on plan of care and expected duration. Pain level reassessed. Patient is alert, oriented x 3, equal unlabored respirations, skin warm/dry/pink. 23:30 Reassessment: No changes from previously documented assessment. Patient and/or family ll3 updated on plan of care and expected duration. Pain level reassessed. Patient is alert, oriented x 3, equal unlabored respirations, skin warm/dry/pink. Vital Signs: 18:49 BP 142 / 91; Pulse 81; Resp 20; Temp 98.7; Pulse Ox 99% ; Weight 58.97 kg; Height 5 ft. [facility] 0 in. (152.40 cm); 21:00 BP 138 / 88; Pulse 80; Resp 17; Pulse Ox 100% on R/A; Pain 2/10; hb 22:30 BP 118 / 63; Pulse 71; Resp 17; Pulse Ox 98% on R/A; ll3 23:30 BP 110 / 68; Pulse 72; Resp 18; Pulse Ox 98% on R/A; ll3 18:49 Body Mass Index 25.39 (58.97 kg, 152.40 cm) [facility] ED Course: 18:44 Patient arrived in ED. mb7 18:46 Patient has correct armband on for positive identification. Bed in low position. Call mb7 light in reach. Side rails up X 1. Door closed. Noise minimized. Warm blanket given. 18:46 Client placed on continuous cardiac and pulse oximetry monitoring. NIBP monitoring mb7 applied. 18:51 Triage completed. [facility] 18:51 Arm band placed on right wrist. [facility] 19:01 Ayla Coles, AYLEEN is Primary Nurse. hb 19:16 Valeriano Cisneros MD is Attending Physician. [facility] 19:46 Inserted saline lock: 20 gauge in right antecubital area, using aseptic technique. hb Blood collected. 20:52 Chest Single View XRAY In Process Unspecified. EDMS 21:03 Gilbert Oliva MD is Hospitalizing Provider. meghan 21:29 CT Chest For PE Angio In Process Unspecified. EDMS 21:44 Notified ED physician of a critical lab result(s). Mag 1.1. ll3 11/18 00:54 No provider procedures requiring assistance completed. Patient admitted, IV remains in ll3 place. Administered Medications: 11/17 20:00 Drug: NS 0.9% 500 ml Route: IV; Rate: bolus; Site: right antecubital; hb 20:59 Follow up: Response: No adverse reaction; IV Status: Completed infusion; IV Intake: hb 500ml 20:00 Drug: Zofran (Ondansetron) 4 mg Route: IVP; Site: right antecubital; hb 21:02 Follow up: Response: No adverse reaction hb 20:00 Drug: Pepcid (famotidine) 20 mg Route: IVP; Site: right antecubital; hb 20:59 Follow up: Response: No adverse reaction hb 20:01 Drug: Glucagon 1 mg Route: IVP; Site: right antecubital; hb 20:58 Follow up: Response: No adverse reaction hb 20:20 Drug: NS 0.9% 1000 ml Route: IV; Rate: 125 ml/hr; Site: right antecubital; hb 20:58 Drug: Glucagon 1 mg Route: IVP; Site: right antecubital; hb 22:14 Drug: Potassium Effervescent Tablet 25 mEq Route: PO; ll3 22:58 Follow up: Response: No adverse reaction ll3 22:19 Drug: Magnesium Sulfate 1 grams Route: IVPB; Infused Over: 30 mins; Site: right ll3 antecubital; 23:09 Follow up: Response: No adverse reaction; IV Status: Completed infusion; IV Intake: ll3 100ml 22:58 Not Given (Patient Refused): Potassium Chloride 20 mEq IV at per protocol once; ll3 administer over 1-2 hours Medication: 19:02 VIS not applicable for this client. hb Intake: 20:59 IV: 500ml; Total: 500ml. hb 23:09 IV: 100ml; Total: 600ml. ll3 Outcome: 21:05 Decision to Hospitalize by Provider. [facility] 11/18 00:30 Admitted to ER Hold. Please see [employer] for further documentation. ll3 Condition: stable Instructed on the need for admit, Demonstrated understanding of instructions. 11:50 Patient left the ED. vg1 Signatures: Dispatcher [employer] Valeriano Min MD MD cha Ballard, Brenda, RN RN Ayla Jensen RN Asuncion Lambert RN RN vg1 Cherie Flor RN RN 5 Erick Randolph RN RN ll3 Nano Smith [facility]
[2021-11-17 21:40] LABS: Troponin High Sensitivity 3.9 pg/mL (<58.9)
[2021-11-17 21:43] LABS: Magnesium 1.1 mg/dL (1.8-2.4)
--- NOTE | 2021-11-17 21:47 | RAD REPORT ---
EXAM DESCRIPTION: CT - Chest For Pe Angio - 11/17/2021 9:27 pm CLINICAL HISTORY: Chest pain. dyspnea COMPARISON: Chest For Pe Angio dated 07/24/2018 TECHNIQUE: CT angiogram of the pulmonary arteries was performed with MIP. All CT scans are performed using dose optimization technique as appropriate and may include automated exposure control or mA/KV adjustment according to patient size. FINDINGS: No evidence of pulmonary thromboembolism. No acute aortic finding demonstrated. The lungs are clear. No significant pericardial or pleural fluid. No concerning bony finding. Moderate hiatal hernia with esophageal thickening. Several prominent lymph nodes are seen surrounding the esophagus at the gastroesophageal junction. IMPRESSION: No evidence of pulmonary thromboembolism. Moderate hiatal hernia with diffuse thickened appearance to the esophagus. Several enlarged lymph nod es are seen at the gastroesophageal junction. Suggest followup direct visualization upper endoscopy.
[2021-11-17] MEDS ORDERED: MAGNESIUM SULFATE 1 gm IVPB 1 GM/100 ML BAG IV ONE (22:23)
--- NOTE | 2021-11-17 23:26 | P.HP ---
Certification for Inpatient Patient admitted to: Observation With expected LOS: <2 Midnights Patient will require the following post-hospital care: None Practitioner: I am a practitioner with admitting privileges, knowledge of patient current condition, hospital course, and medical plan of care. Services: Services provided to patient in accordance with Admission requirements found in Title 42 Section 412.3 of the Code of Federal Regulations Patient History Date of Service: 11/17/21 Reason for admission: Hypokalemia, Hypomagnesmia, Hyperglycemia History of Present Illness: Patient is a 61 year-old female with Gitelman Syndrome, hypothyroidism, and GERD who presented to the ED with complaints of food bolus. It passed in the ED after 2 mg glucagon but is now complaining of dysphagia. Her labs were significant for potassium 2.9, magnesium 1.1, glucose 344. No changes noted on EKG. She does not have a diagnosis of diabetes. 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 She states that she has not been taking her supplements lately. Given her dyspagia and recent food bolus (and patient reports this has happened several times in the past), potassium pills are to be avoided for the time being. In the ED, she was given 1 gram IV magnesium and 25 mEq oral potassium. ED provider wishes to admit patient for observation to correct electrolytes with IV replacement and blood sugar control with close monitoring. Allergies No Known Allergies Allergy (Verified 07/24/18 05:12) Home Medications: Amiloride HCl 6 tab PO DAILY 07/24/18 Azithromycin Tab [Zithromax*] 250 mg PO DAILY #7 tab 07/24/18 Levothyroxine [Synthroid*] 1 tab PO DAILY 07/24/18 Magnesium Oxide [Mag 0X*] 2 tab PO BID 07/24/18 Pantoprazole [Protonix Tab*] 1 tab PO BEDTIME 07/24/18 Potassium Chloride 4 tab PO BID 07/24/18 Ranitidine [Zantac*] 1 tab PO DAILY 07/24/18 Spironolactone [Aldactone] 3 tab PO DAILY 07/24/18 - Past Medical/Surgical History Diabetic: No -: Gitleman Syndrome -: Hypokalemia -: Hypomagnesmia -: GERD -: Hypothyroidism Past Surgical History: Patient denies surgical history Psychosocial/ Personal History: Patient is . - Family History Mother -: Diabetes Brother -: Diabetes - Social History Smoking Status: Never smoker Alcohol use: No CD- Drugs: No Caffeine use: Yes Place of Residence: Home Review of Systems ENT: Throat Pain, As per HPI Physical Examination - Physical Exam General: Alert, In no apparent distress HEENT: Atraumatic, PERRLA, EOMI, Sclerae nonicteric Neck: Supple, 2+ carotid pulse no bruit, No LAD, Without JVD or thyroid abnormality Respiratory: Clear to auscultation bilaterally, Normal air movement Cardiovascular: Regular rate/rhythm, Normal S1 S2 Gastrointestinal: Normal bowel sounds, No tenderness Musculoskeletal: No tenderness Integumentary: No rashes Neurological: Normal speech, Normal strength at 5/5 x4 extr, Normal tone, Normal affect - Studies Laboratory Data (last 24 hrs) 11/17/21 20:52: Magnesium Cancelled 11/17/21 19:50: Magnesium 1.1 L* 11/17/21 19:50: Sodium 133 L, Potassium 2.9 L*, BUN 16, Creatinine 1.00, Glucose 344 H, Total Bilirubin 0.4, AST 20, ALT 29, Alkaline Phosphatase 63 11/17/21 19:50: WBC 8.20, Hgb 13.8, Hct 39.3, Plt Count 281 Assessment and Plan - Problems (Diagnosis) (1) Gitelman syndrome Current Visit: Yes Status: Chronic (2) Hypokalemia Current Visit: Yes Status: Chronic (3) Hyperglycemia Current Visit: Yes Status: Acute (4) Dysphagia Current Visit: Yes Status: Acute Qualifiers: Dysphagia type: esophageal phase Qualified Code(s): R13.19 - Other dysphagia (5) Hypomagnesemia Current Visit: Yes Status: Chronic (6) Hypothyroidism Current Visit: Yes Status: Chronic Qualifiers: Hypothyroidism type: acquired Qualified Code(s): E03.9 - Hypothyroidism, unspecified - Plan -1 gram IV magnesium given in ED. Continue to replete per protocol. -25 mEq oral potassium given in ED. NS + 20 mEq KCL at 100 cc/hr overnight. Monitor on telemetry. -Recheck BMP, magnesium, and phosphorous in the morning. -Initial blood sugar 344. Patient does not have history of diabetes and is not currently taking any steroids. A1C ordered for the morning. -Conservative blood sugar management with mild sliding scale to avoid further potassium depletion. -Advance diet as tolerated given recent food bolus and resulting dysphagia. -Patient reports several episodes of food boluses getting stuck in her esophagus but has never had it evaluated. She will likely need further evaluation on an outpatient basis. -Lovenox for VTE prophylaxis. -Full code Discharge Plan: Home Plan to discharge in: 24 Hours - Advance Directives Does patient have a Living Will: No Does patient have a Durable POA for Healthcare: No - Code Status/Comfort Care Code Status Assessed: Yes (Full) Critical Care: No Time Spent Managing Pts Care (In Minutes): 50
[2021-11-18 00:18] LABS: SARS-CoV-2 Antigen Rapid Res Negative (Negative)
[2021-11-18] MEDS ORDERED: NS KCL 20MEQ 20 MEQ/1,000 ML BAG IV SCH (00:33)
[2021-11-18] MEDS ORDERED: ACETAMINOPHEN 500 MG TAB PO PRN (00:33)
[2021-11-18] MEDS ORDERED: ONDANSETRON 4 MG/2 ML VIAL IV PRN (00:33)
[2021-11-18] MEDS ORDERED: NS KCL 20MEQ 1,000 ML IV ONE (00:56)
[2021-11-18 02:30] VITALS: BMI 25.4
[2021-11-18 02:52] LABS: Absolute Lymphocytes (CBC) 2.9 K/uL (0.7-4.9); Hematocrit 34.8 % (36.0-45.0); Lymphocytes % 29.2 % (15.3-44.8); MCV 87.3 fL (80-100); MPV 8.3 fL (7.6-11.3); RBC Red Blood Cell Count 3.98 M/uL (3.86-4.86)
[2021-11-18 03:12] LABS: Magnesium 1.5 mg/dL (1.8-2.4); Phosphorus 2.1 mg/dL (2.5-4.9); Potassium 3.3 mmol/L (3.5-5.1); Thyroid Stimulating Hormone 2.18 uIU/mL (0.360-3.740)
--- NOTE | 2021-11-18 06:25 | EKG ---
Test Date: 2021-11-17 Test Time: 20:01:37 Shift Production Supervisor: HB MEASUREMENT RESULTS: Intervals: Rate: 73 SD: 150 QRSD: 86 QT: 404 QTc: 445 [place]: P: 57 SD: 150 QRS: 84 T: 41 INTERPRETIVE STATEMENTS: Normal sinus rhythm Normal ECG Compared to ECG 10/06/2018 21:50:17 Sinus tachycardia no longer present Ventricular premature complex(es) no longer present Myocardial infarct finding no longer present Electronically Signed On 11-18-21 06:23:45 CDT by Luis Alberto Metcalf
[2021-11-18] MEDS ORDERED: INSULIN -REGULAR HUMAN 50 UNIT/0.5 ML ML SQ SCH (07:30)
[2021-11-18] MEDS ORDERED: ENOXAPARIN 40 MG/0.4 ML SQ SCH (09:00)
[2021-11-18] MEDS ORDERED: ENOXAPARIN 40 MG/0.4 ML SQ ONE (09:54)
[2021-11-18 12:04] VITALS: TEMP 98.7
[2021-11-18 12:08] VITALS: O2SAT 98
[2021-11-18 12:10] VITALS: BP 110/68
--- NOTE | 2021-11-18 12:30 | P.DS ---
Admission Date: 11/17/21 Discharge Date: 11/18/21 Disposition: ROUTINE DISCHARGE Discharge Condition: FAIR Reason for Admission: Hypokalemia, Hypomagnesmia, Hyperglycemia - Problems (1) Dysphagia Status: Acute Qualifiers: Dysphagia type: esophageal phase Qualified Code(s): R13.19 - Other dysphagia (2) Hyperglycemia Status: Acute (3) Gitelman syndrome Status: Chronic (4) Hypokalemia Status: Chronic (5) Hypomagnesemia Status: Chronic Brief History of Present Illness: Patient is a 61 year-old female with Gitelman Syndrome, hypothyroidism, and GERD who presented to the ED with complaints of food bolus. It passed in the ED after 2 mg glucagon but is now complaining of dysphagia. Her labs were significant for potassium 2.9, magnesium 1.1, glucose 344. No changes noted on EKG. She does not have a diagnosis of diabetes. 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 She states that she has not been taking her supplements lately. Given her dyspagia and recent food bolus (and patient reports this has happened several times in the past), potassium pills are to be avoided for the time being. In the ED, she was given 1 gram IV magnesium and 25 mEq oral potassium. Placed under observation for further management. Hospital Course: Patient placed under observation on the medical floor and given IV potassium and magnesium replacement. Patient tolerated her meals. Potassium and magnesium levels improved. Patient reports history of heartburn. I suspect oral potassium pills causing esophagitis and possible esophageal stricture. Patient is discharged and given referral to GI for evaluation. She is also given referral to nephrology for further management of Gitelman's syndrome. Vital Signs/Physical Exam: Temp Pulse Resp BP Pulse Ox 98.7 F 72 18 110/68 98 11/18/21 12:02 11/18/21 12:09 11/18/21 12:09 11/18/21 12:11/18/21 08:00 General: Alert, In no apparent distress, Oriented x3 HEENT: Mucous membr. moist/pink Neck: Supple, JVD not distended Respiratory: Clear to auscultation bilaterally, Normal air movement Cardiovascular: No edema, Regular rate/rhythm, Normal S1 S2 Gastrointestinal: Soft and benign, Non-distended, No tenderness Musculoskeletal: No swelling Integumentary: No rashes, No erythema Neurological: Normal strength at 5/5 x4 extr Laboratory Data at Discharge: WBC 9.90 K/uL (4.3-10.9) D 11/18/21 02:16 Hgb 12.2 g/dL (12.0-15.0) 11/18/21 02:16 Hct 34.8 % (36.0-45.0) L 11/18/21 02:16 Plt Count 262 K/uL (152-406) 11/18/21 02:16 Sodium 137 mmol/L (136-145) 11/18/21 02:16 Potassium 3.3 mmol/L (3.5-5.1) L 11/18/21 02:16 BUN 14 mg/dL (7-18) 11/18/21 02:16 Creatinine 0.84 mg/dL (0.55-1.3) 11/18/21 02:16 Glucose 232 mg/dL (74-106) H 11/18/21 02:16 Phosphorus 2.1 mg/dL (2.5-4.9) L 11/18/21 02:16 Magnesium 1.5 mg/dL (1.8-2.4) L 11/18/21 02:16 Total Bilirubin 0.4 mg/dL (0.2-1.0) 11/17/21 19:50 AST 20 U/L (15-37) 11/17/21 19:50 ALT 29 U/L (12-78) 11/17/21 19:50 Alkaline Phosphatase 63 U/L (45-117) 11/17/21 19:50 Triglycerides 119 mg/dL (<150) 11/18/21 02:16 Cholesterol 167 mg/dL (<200) 11/18/21 02:16 HDL Cholesterol 49 mg/dL (40-60) 11/18/21 02:16 Cholesterol/HDL Ratio 3.41 11/18/21 02:16 Home Medications: Amiloride HCl 6 tab PO DAILY 07/24/18 Levothyroxine [Synthroid*] 1 tab PO DAILY 07/24/18 Magnesium Oxide [Mag 0X*] 2 tab PO BID 07/24/18 Ranitidine [Zantac*] 1 tab PO DAILY 07/24/18 Spironolactone [Aldactone] 3 tab PO DAILY 07/24/18 Metformin HCl [Glucophage*] 500 mg PO BIDWM #60 tab 11/18/21 Pantoprazole [Protonix Tab*] 1 tab PO BID #60 tab 11/18/21 Potassium Bicarbonate/Cit AC [Effer-K 20 Meq Tablet Eff] 40 meq PO DAILY #30 11/18/21 New Medications: Potassium Bicarbonate/Cit AC [Effer-K 20 Meq Tablet Eff] 40 meq PO DAILY #30 Metformin HCl [Glucophage*] 500 mg PO BIDWM #60 tab Pantoprazole [Protonix Tab*] 1 tab PO BID #60 tab Diet: AHA Activity: Ad rachael Followup: Manpreet Thomas DO [ACTIVE - CAN ADMIT] - Michael Sheriff MD [ACTIVE - CAN ADMIT] - 1-2 Weeks Jean Lees MD [ACTIVE - CAN ADMIT] - 1-2 Weeks
== END 2021-11-18 11:48 | disposition home or self-care (01) ==
LOC: ER 18:43 → ERHOLD 23:14
PROVIDERS: ADMIT Internal Medicine; ATTEND Internal Medicine
DX: E83.42 Hypomagnesemia (principal); E87.6 Hypokalemia; R13.19 Other dysphagia; R73.9 Hyperglycemia, unspecified; N25.89 Other disorders resulting from impaired renal tubular function; K21.9 Gastro-esophageal reflux disease without esophagitis; E03.9 Hypothyroidism, unspecified; Z20.822 Contact with and (suspected) exposure to COVID-19; Z83.3 Family history of diabetes mellitus
CPT/HCPCS: 96365; 96361; 93005; 85025 ×2; 80048; 36415; 83735 ×2; 84100; 80061; 82947; 84443; 83036; 84484; 80053; 71275; 71045; 96375; 99285; 87811; Q9967; J1610 ×2; J3480 ×2; J1650; J3475; J7030; J2405; G0378 ×2